=== PATIENT | female | born 1935 ===

== ENCOUNTER 2019-12-20 15:47 | Inpatient (IN) | payer MEDICARE ==
[2019-12-20] MEDS ORDERED: MELATONIN 5 MG TAB PO PRN (17:49)
[2019-12-20] MEDS: traZODone 50 MG TAB PO SCH (23:45)
--- NOTE | 2019-12-21 08:54 | Consultation ---
History of Present Illness - Reason for Consult Consult date: 12/21/19 Reason for consult: Dementia w/Behavioral Disturbance - History of Present Psychiatric Illness Torito Cohen is an 84y/o female who was admitted to [facility] for due to agitation and threatening behavior at her [facility], per nurse note. During my interview the patient was lying in bed. She is awake, and oriented x 2. She is irritable. The patient states, "I am not good. I could be in my own bed." She then says, "but instead they got me in somebody else bed." She says "I guess I'm here for safe keeping." The patient denies hallucinations of any kind, stating "the only voices I hear is somebody yapping their mouth when they are talking to me." She denies suicidal thoughts, stating, "who me? no, I don't want to hurt myself." She denies any suicide attempt in the past. She then says, "It's some people that was around me that I wanted to hurt." She then says, "if they give me a reason to." The patient denies any past psych history. She says, "my doctor told me I didn't need any of that." She also denies any illicit drug use, alcohol or nicotine. PAST PSYCHIATRIC HISTORY Diagnoses: Denies Suicide attempts or Self-harm behavior: Denies Prior psychiatric hospitalizations: Denies Substance Abuse history: Denies Previous psychiatric medications tried: Denies Outpatient treatment: Denies PAST MEDICAL HISTORY: None reported FAMILY PSYCHIATRIC HISTORY: None reported or documented SOCIAL HISTORY Marital Status: Living Arrangements: with grandchildren Employment Status: Retried Access to guns/weapons: Denies Education: History of Abuse: None reported Legal History: none reported REVIEW OF SYSTEMS Constitutional: Negative for weight loss ENT: Negative for stridor Respiratory: Negative for cough or hemoptysis All other systems reviewed and are negative MENTAL STATUS EXAMINATION General Appearance: Dressed appropriately Behavior: Irritable, cooperative Mood: "not good" Affect and affective range: Congruent with stated mood Speech: Normal volume, Regular rate and rhythm Thought Process: Goal directed Thought Content: Suicidal Ideation: Denies Homicidal Ideation: Denies Hallucinations: Denies Delusions: None elicited Insight and Judgment: Limited Memory/Cognition: Limited Assessment Dementia with Behavioral Disturbance Treatment Plan Patient will be admitted for inpatient psychiatric evaluation, medication adjustment and close monitoring The patient's behavior, mood, sleep and appetite will be closely monitored. Patient will be enrolled in individual and group therapeutic sessions and encouraged to attend. Patient will be provided with a safe and structured environment. Patient's physical health needs will be addressed by the Hospitalist. Hospitalist Consulted Labs including CBC, CMP, Lipid profile and Hemoglobin A1C ordered Social Assessment will be completed and the Technical Sales Specialist will work with patient and family to ensure a suitable and safe disposition Medication adjustment will be made as clinically indicated Started home medications Started Risperidone 0.25mg po BID Usual Wellness [facility]: - Start Trazodone 50 mg po QHS & 50 mg po QHS PRN between 10 PM & 2 AM for insomnia - Start Melatonin 5 mg po QHS to promote circadian rhythm - Start [place]-3 for brain health, reduce impulsivity, and as adjunctive treatment for mood disorder, continue upon discharge given overall benefits. The patient agreed on the treatment plan, understood the risk, benefit, alternative treatment, potential consequence of no treatment, and gave informed consent. I certify that Torito Cohen is an 84y/o female who inpatient psychiatric services are required for treatment that could reasonably be expected to improve the patient's condition of Dementia with Behavioral Disturbance. Estimated length of stay: (7 days) Post hospital care: primary care provider, psychiatric provider Medications and Allergies Allergies Allergy/AdvReac Type Severity Reaction Status Date / Time No Known Allergies Allergy Verified 12/20/19 22:51 Home Medications Medication Instructions Recorded Confirmed Last Taken Type Docusate Sodium [Colace] 100 mg PO BID 12/20/19 12/20/19 Unknown History Memantine 5 mg PO BID 12/20/19 12/20/19 Unknown History Tylenol 650 mg PO Q4HR PRN 12/20/19 12/20/19 Unknown History amLODIPine 2.5 mg PO HS 12/20/19 12/20/19 Unknown History donepeziL [Aricept] 10 mg PO QDAY 12/20/19 12/20/19 Unknown History Active Meds: Active Medications Melatonin (Melatonin) 5 mg PO QHS PRN PRN Reason: Sleep Trazodone HCl (Desyrel) 50 mg PO QHS [facility] Last Admin: 12/20/19 23:45 Dose: Not Given Documented by: Mental Status Exam - Vital signs Last Vital Signs Temp 99.7 F H 12/20/19 22:45 Pulse 76 12/20/19 22:45 Resp 20 12/20/19 22:45 BP 160/70 12/20/19 22:45 Pulse Ox 99 12/20/19 22:45 Results Result Diagrams: 12/21/19 08:10 Abnormal lab results 12/21/19 Range/Units 07:02 POC Glucose 138 H (70-105) All other labs normal.
[2019-12-21 08:56] LABS: Albumin 3.9 g/dL (3.9-5); Chol/HDL Ratio 2.88 %
[2019-12-21] MEDS ORDERED: TYLENOL 650 MG PO PRN (09:02)
[2019-12-21] MEDS: DONEPEZIL 10 MG TAB PO SCH (09:58)
[2019-12-21] MEDS: DOCUSATE SODIUM 100 MG CAP PO SCH ×2 (09:58→22:20)
[2019-12-21] MEDS: OMEGA-3 FATTY ACIDS/FISH OIL 1 GRAM CAP PO SCH ×2 (09:58→22:19)
[2019-12-21] MEDS: risperiDONE 0.25 MG TAB PO SCH ×2 (09:58→22:20)
[2019-12-21] MEDS ORDERED: ACETAMINOPHEN 325 MG TAB PO PRN (10:00)
[2019-12-21] MEDS ORDERED: NON-FORMULARY EACH (Memantine 5 MG) PO SCH (10:00)
[2019-12-21] MEDS: MEMANTINE 5 MG TAB PO SCH ×2 (10:30→22:20)
[2019-12-21 13:34] LABS: Mucus,Urine FEW /HPF
[2019-12-21 13:36] LABS: Bilirubin,Urine NEG (Negative); Blood,Urine NEG (Negative); Color,Urine Yellow (Yellow); Urobilinogen,Urine < 2.0 mg/dL (<2.0)
[2019-12-21] MEDS ORDERED: AMLODIPINE 2.5 MG PO SCH (22:00)
[2019-12-21] MEDS: traZODone 50 MG TAB PO SCH (22:19)
[2019-12-21] MEDS: amLODIPine 5 MG TAB PO SCH (22:20)
[2019-12-22] MEDS: risperiDONE 0.25 MG TAB PO SCH ×2 (09:40→21:41)
[2019-12-22] MEDS: MEMANTINE 5 MG TAB PO SCH ×2 (09:40→21:40)
[2019-12-22] MEDS: DONEPEZIL 10 MG TAB PO SCH (09:40)
[2019-12-22] MEDS: OMEGA-3 FATTY ACIDS/FISH OIL 1 GRAM CAP PO SCH ×2 (09:40→21:41)
[2019-12-22] MEDS: DOCUSATE SODIUM 100 MG CAP PO SCH ×2 (09:40→21:40)
--- NOTE | 2019-12-22 09:42 | Progress Note ---
Subjective Date of service: 12/22/19 Principal diagnosis: Dementia w/Behavioral Disturbance Subjective Comment: The patient's medical record was reviewed and the patient's progress was discussed with the nursing staff. During my interview with the patient, she is lying down in bed with her eyes closed. She easily arouses. The patient is easily irritable. She appears somewhat paranoid. She is a/o x 1, but initially tells me "I don't remember my name." The patient states "how do you think I'm doing," when asking her how was she feeling. She then states, "it's not good." The patient states, "I'm hurting all over my body. I need to be in a hospital where there are nurses and doctors." She then states "I don't see no nurses in this place." She denies hallucinations of any kind. When asking the patient thoughts of self harm, she says "no, I don't want to kill myself. I want to kill you." REVIEW OF SYSTEMS Constitutional: Negative for weight loss ENT: Negative for stridor Respiratory: Negative for cough or hemoptysis All other systems reviewed and are negative MENTAL STATUS EXAMINATION General Appearance: Dressed appropriately Behavior: Irritable, cooperative Mood: "not good" Affect and affective range: Congruent with stated mood Speech: Normal volume, Regular rate and rhythm Thought Process: Goal directed Thought Content: Suicidal Ideation: Denies Homicidal Ideation: possibly passive Hallucinations: Denies Delusions: None elicited Insight and Judgment: Limited Memory/Cognition: Limited Assessment Dementia with Behavioral Disturbance Treatment Plan Patient will be admitted for inpatient psychiatric evaluation, medication adjustment and close monitoring The patient's behavior, mood, sleep and appetite will be closely monitored. Patient will be enrolled in individual and group therapeutic sessions and encouraged to attend. Patient will be provided with a safe and structured environment. Patient's physical health needs will be addressed by the Hospitalist. Hospitalist Consulted Labs including CBC, CMP, Lipid profile and Hemoglobin A1C ordered Social Assessment will be completed and the Big Data Analytics Lead will work with patient and family to ensure a suitable and safe disposition Medication adjustment will be made as clinically indicated Increased Risperidone 0.5mg po BID Usual Wellness [facility]: - Start Trazodone 50 mg po QHS & 50 mg po QHS PRN between 10 PM & 2 AM for insomnia - Start Melatonin 5 mg po QHS to promote circadian rhythm - Start [place]-3 for brain health, reduce impulsivity, and as adjunctive treatment for mood disorder, continue upon discharge given overall benefits. The patient agreed on the treatment plan, understood the risk, benefit, alternative treatment, potential consequence of no treatment, and gave informed consent. Estimated length of stay: (7 days) Post hospital care: primary care provider, psychiatric provider Medications and Allergies Allergies Allergy/AdvReac Type Severity Reaction Status Date / Time No Known Allergies Allergy Verified 12/20/19 22:51 Home Medications Medication Instructions Recorded Confirmed Last Taken Type Docusate Sodium [Colace] 100 mg PO BID 12/20/19 12/20/19 Unknown History Memantine 5 mg PO BID 12/20/19 12/20/19 Unknown History Tylenol 650 mg PO Q4HR PRN 12/20/19 12/20/19 Unknown History amLODIPine 2.5 mg PO HS 12/20/19 12/20/19 Unknown History donepeziL [Aricept] 10 mg PO QDAY 12/20/19 12/20/19 Unknown History Active Meds: Active Medications Acetaminophen (Tylenol) 650 mg PO Q4H PRN PRN Reason: Pain, Moderate (4-6) Amlodipine Besylate (Amlodipine) 2.5 mg PO QHS [facility] Last Admin: 12/21/19 22:20 Dose: 2.5 mg Documented by: Docusate Sodium (Colace) 100 mg PO BID [facility] Last Admin: 12/21/19 22:20 Dose: 100 mg Documented by: Donepezil HCl (Aricept) 10 mg PO QDAY [facility] Last Admin: 12/21/19 09:58 Dose: 10 mg Documented by: Fish Oil (Fish Oil) 2,000 mg PO BID [facility] Last Admin: 12/21/19 22:19 Dose: 2,000 mg Documented by: Melatonin (Melatonin) 5 mg PO QHS PRN PRN Reason: Sleep Memantine (Memantine) 5 mg PO BID [facility] Last Admin: 12/21/19 22:20 Dose: 5 mg Documented by: Risperidone (Risperdal) 0.25 mg PO BID [facility] Last Admin: 12/21/19 22:20 Dose: 0.25 mg Documented by: Trazodone HCl (Desyrel) 50 mg PO QHS [facility] Last Admin: 12/21/19 22:19 Dose: 50 mg Documented by: Results - Results Labs/Vitals: Laboratory Last Values Sodium 141 mmol/L (137-145) 12/21/19 08:10 Potassium 4.5 mmol/L (3.6-5.0) 12/21/19 08:10 Chloride 105.2 mmol/L (98-107) 12/21/19 08:10 Carbon Dioxide 22 mmol/L (22-30) 12/21/19 08:10 Anion Gap 18 mmol/L 12/21/19 08:10 BUN 22 mg/dL (7-17) H 12/21/19 08:10 Creatinine 1.0 mg/dL (0.6-1.2) 12/21/19 08:10 Estimated GFR 53 ml/min 12/21/19 08:10 BUN/Creatinine Ratio 22 % 12/21/19 08:10 Glucose 122 mg/dL (65-100) H 12/21/19 08:10 POC Glucose 138 (70-105) H 12/21/19 07:02 Calcium 9.0 mg/dL (8.4-10.2) 12/21/19 08:10 Total Bilirubin 0.40 mg/dL (0.1-1.2) 12/21/19 08:10 AST 19 units/L (5-40) 12/21/19 08:10 ALT 17 units/L (7-56) 12/21/19 08:10 Alkaline Phosphatase 94 units/L (35-129) 12/21/19 08:10 Total Protein 7.1 g/dL (6.3-8.2) 12/21/19 08:10 Albumin 3.9 g/dL (3.9-5) 12/21/19 08:10 Albumin/Globulin Ratio 1.2 % 12/21/19 08:10 Triglycerides 78 mg/dL (2-149) 12/21/19 08:10 Cholesterol 199 mg/dL (50-199) 12/21/19 08:10 LDL Cholesterol Direct 119 mg/dL (50-130) 12/21/19 08:10 HDL Cholesterol 69 mg/dL (40-59) H 12/21/19 08:10 Cholesterol/HDL Ratio 2.88 % 12/21/19 08:10 Urine Color Yellow (Yellow) 12/20/19 Unknown Urine Turbidity Clear (Clear) 12/20/19 Unknown Urine pH 6.0 (5.0-7.0) 12/20/19 Unknown Ur Specific [place] 1.020 (1.003-1.030) 12/20/19 Unknown Urine Protein 30 mg/dl mg/dL (Negative) 12/20/19 Unknown Urine Glucose (UA) Neg mg/dL (Negative) 12/20/19 Unknown Urine Ketones Neg mg/dL (Negative) 12/20/19 Unknown Urine Blood Neg (Negative) 12/20/19 Unknown Urine Nitrite Neg (Negative) 12/20/19 Unknown Ur Reducing Substances Not Reportable 12/20/19 Unknown Urine Bilirubin Neg (Negative) 12/20/19 Unknown Urine Ictotest Not Reportable 12/20/19 Unknown Urine Urobilinogen < 2.0 mg/dL (<2.0) 12/20/19 Unknown Ur Leukocyte Esterase Sm (Negative) 12/20/19 Unknown Urine WBC (Auto) 5.0 /HPF (0.0-6.0) 12/20/19 Unknown Urine RBC (Auto) 1.0 /HPF (0.0-6.0) 12/20/19 Unknown U Epithel Cells (Auto) 5.0 /HPF (0-13.0) 12/20/19 Unknown Urine Mucus Few /HPF 12/20/19 Unknown Last Vital Signs Temp 98.1 F 12/22/19 09:20 Pulse 67 12/22/19 09:20 Resp 18 12/22/19 09:20 BP 141/63 12/22/19 09:20 Pulse Ox 99 12/22/19 09:20
[2019-12-22 10:00] LABS: Hematocrit 45.6 % (30.3-42.9); Hemoglobin 14.9 gm/dl (10.1-14.3); Mean Corpuscular HGB Conc 33 % (30-34); Mean Corpuscular Volume 90 fl (79-97); Platelet Count 139 K/mm3 (140-440); Red Blood Count 5.09 M/mm3 (3.65-5.03); Red Cell Distribution Width 13.7 % (13.2-15.2)
[2019-12-22] MEDS ORDERED: risperiDONE 0.25 MG TAB PO SCH (10:00)
[2019-12-22] MEDS: amLODIPine 5 MG TAB PO SCH (21:39)
[2019-12-22] MEDS: traZODone 50 MG TAB PO SCH (21:40)
--- NOTE | 2019-12-23 08:37 | Progress Note ---
Subjective Date of service: 12/23/19 Principal diagnosis: Dementia w/Behavioral Disturbance Subjective Comment: The patient's medical record was reviewed and the patient's progress was discussed with the nursing staff. The nurse note states the patient calm and pleasantly confused and forgetful. She tried to eat food left by another pt. Pt. was a little bit irritable, but calm down right after as staff was redirect her and she apologized. During my interview with the patient, she is in her room straightening her bed. She is confused. She is calm and cooperative. She walk over to the window. The patient states, "I'm trying to see if I see my house from here." She says "I need to go across the street to my house to get something." She says her night was "okay." The patient says she "feels alright." She denies SI/HI or hallucinations of any kind. REASON FOR CONTINUED INPATIENT TREATMENT: The patient is improving, but continues to be easily irritable. Will continue to treat and stabilize to ensue a safe discharge. REVIEW OF SYSTEMS Constitutional: Negative for weight loss ENT: Negative for stridor Respiratory: Negative for cough or hemoptysis All other systems reviewed and are negative MENTAL STATUS EXAMINATION General Appearance: Dressed appropriately Behavior: Calm, cooperative (at times easily irritable) Mood: "alright" Affect and affective range: Congruent with stated mood Speech: Normal volume, Regular rate and rhythm Thought Process: Impaired Thought Content: Suicidal Ideation: Denies Homicidal Ideation: Denies Hallucinations: Denies Delusions: None elicited Insight and Judgment: Limited Memory/Cognition: Impaired Assessment Dementia with Behavioral Disturbance Treatment Plan Patient will be admitted for inpatient psychiatric evaluation, medication adjustment and close monitoring The patient's behavior, mood, sleep and appetite will be closely monitored. Patient will be enrolled in individual and group therapeutic sessions and encouraged to attend. Patient will be provided with a safe and structured environment. Patient's physical health needs will be addressed by the Hospitalist. Hospitalist Consulted Labs including CBC, CMP, Lipid profile and Hemoglobin A1C ordered Social Assessment will be completed and the Submarine Advisory Team Watch Officer will work with patient and family to ensure a suitable and safe disposition Medication adjustment will be made as clinically indicated Increased Risperidone 0.5mg po BID yesterday No changes made today Usual Wellness [facility]: - Start Trazodone 50 mg po QHS & 50 mg po QHS PRN between 10 PM & 2 AM for insomnia - Start Melatonin 5 mg po QHS to promote circadian rhythm - Start [place]-3 for brain health, reduce impulsivity, and as adjunctive treatment for mood disorder, continue upon discharge given overall benefits. The patient agreed on the treatment plan, understood the risk, benefit, alternative treatment, potential consequence of no treatment, and gave informed consent. Estimated length of stay: (5 days) Post hospital care: primary care provider, psychiatric provider Medications and Allergies Allergies Allergy/AdvReac Type Severity Reaction Status Date / Time No Known Allergies Allergy Verified 12/20/19 22:51 Home Medications Medication Instructions Recorded Confirmed Last Taken Type Docusate Sodium [Colace] 100 mg PO BID 12/20/19 12/20/19 Unknown History Memantine 5 mg PO BID 12/20/19 12/20/19 Unknown History Tylenol 650 mg PO Q4HR PRN 12/20/19 12/20/19 Unknown History amLODIPine 2.5 mg PO HS 12/20/19 12/20/19 Unknown History donepeziL [Aricept] 10 mg PO QDAY 12/20/19 12/20/19 Unknown History Active Meds: Active Medications Acetaminophen (Tylenol) 650 mg PO Q4H PRN PRN Reason: Pain, Moderate (4-6) Amlodipine Besylate (Amlodipine) 2.5 mg PO QHS [facility] Last Admin: 12/22/19 21:39 Dose: 2.5 mg Documented by: Docusate Sodium (Colace) 100 mg PO BID [facility] Last Admin: 12/22/19 21:40 Dose: 100 mg Documented by: Donepezil HCl (Aricept) 10 mg PO QDAY [facility] Last Admin: 12/22/19 09:40 Dose: 10 mg Documented by: Fish Oil (Fish Oil) 2,000 mg PO BID [facility] Last Admin: 12/22/19 21:41 Dose: 2,000 mg Documented by: Melatonin (Melatonin) 5 mg PO QHS PRN PRN Reason: Sleep Memantine (Memantine) 5 mg PO BID [facility] Last Admin: 12/22/19 21:40 Dose: 5 mg Documented by: Risperidone (Risperdal) 0.5 mg PO BID [facility] Last Admin: 12/22/19 21:41 Dose: 0.5 mg Documented by: Trazodone HCl (Desyrel) 50 mg PO QHS [facility] Last Admin: 12/22/19 21:40 Dose: 50 mg Documented by: Results - Results Labs/Vitals: Laboratory Last Values WBC 5.9 K/mm3 (4.5-11.0) 12/22/19 09:03 RBC 5.09 M/mm3 (3.65-5.03) H 12/22/19 09:03 Hgb 14.9 gm/dl (10.1-14.3) H 12/22/19 09:03 Hct 45.6 % (30.3-42.9) H 12/22/19 09:03 MCV 90 fl (79-97) 12/22/19 09:03 MCH 29 pg (28-32) 12/22/19 09:03 MCHC 33 % (30-34) 12/22/19 09:03 RDW 13.7 % (13.2-15.2) 12/22/19 09:03 Plt Count 139 K/mm3 (140-440) L 12/22/19 09:03 Lymph % (Auto) Recreational Counselor 12/22/19 09:03 [place] % (Auto) Recreational Counselor 12/22/19 09:03 Eos % (Auto) Recreational Counselor 12/22/19 09:03 Baso % (Auto) Recreational Counselor 12/22/19 09:03 Lymph # Recreational Counselor 12/22/19 09:03 [place] # Recreational Counselor 12/22/19 09:03 Eos # Recreational Counselor 12/22/19 09:03 Baso # Recreational Counselor 12/22/19 09:03 Seg Neutrophils % Recreational Counselor 12/22/19 09:03 Seg Neutrophils # Recreational Counselor 12/22/19 09:03 Sodium 141 mmol/L (137-145) 12/21/19 08:10 Potassium 4.5 mmol/L (3.6-5.0) 12/21/19 08:10 Chloride 105.2 mmol/L (98-107) 12/21/19 08:10 Carbon Dioxide 22 mmol/L (22-30) 12/21/19 08:10 Anion Gap 18 mmol/L 12/21/19 08:10 BUN 22 mg/dL (7-17) H 12/21/19 08:10 Creatinine 1.0 mg/dL (0.6-1.2) 12/21/19 08:10 Estimated GFR 53 ml/min 12/21/19 08:10 BUN/Creatinine Ratio 22 % 12/21/19 08:10 Glucose 122 mg/dL (65-100) H 12/21/19 08:10 POC Glucose 181 (70-105) H 12/23/19 06:27 Calcium 9.0 mg/dL (8.4-10.2) 12/21/19 08:10 Total Bilirubin 0.40 mg/dL (0.1-1.2) 12/21/19 08:10 AST 19 units/L (5-40) 12/21/19 08:10 ALT 17 units/L (7-56) 12/21/19 08:10 Alkaline Phosphatase 94 units/L (35-129) 12/21/19 08:10 Total Protein 7.1 g/dL (6.3-8.2) 12/21/19 08:10 Albumin 3.9 g/dL (3.9-5) 12/21/19 08:10 Albumin/Globulin Ratio 1.2 % 12/21/19 08:10 Triglycerides 78 mg/dL (2-149) 12/21/19 08:10 Cholesterol 199 mg/dL (50-199) 12/21/19 08:10 LDL Cholesterol Direct 119 mg/dL (50-130) 12/21/19 08:10 HDL Cholesterol 69 mg/dL (40-59) H 12/21/19 08:10 Cholesterol/HDL Ratio 2.88 % 12/21/19 08:10 Urine Color Yellow (Yellow) 12/20/19 Unknown Urine Turbidity Clear (Clear) 12/20/19 Unknown Urine pH 6.0 (5.0-7.0) 12/20/19 Unknown Ur Specific [place] 1.020 (1.003-1.030) 12/20/19 Unknown Urine Protein 30 mg/dl mg/dL (Negative) 12/20/19 Unknown Urine Glucose (UA) Neg mg/dL (Negative) 12/20/19 Unknown Urine Ketones Neg mg/dL (Negative) 12/20/19 Unknown Urine Blood Neg (Negative) 12/20/19 Unknown Urine Nitrite Neg (Negative) 12/20/19 Unknown Ur Reducing Substances Not Reportable 12/20/19 Unknown Urine Bilirubin Neg (Negative) 12/20/19 Unknown Urine Ictotest Not Reportable 12/20/19 Unknown Urine Urobilinogen < 2.0 mg/dL (<2.0) 12/20/19 Unknown Ur Leukocyte Esterase Sm (Negative) 12/20/19 Unknown Urine WBC (Auto) 5.0 /HPF (0.0-6.0) 12/20/19 Unknown Urine RBC (Auto) 1.0 /HPF (0.0-6.0) 12/20/19 Unknown U Epithel Cells (Auto) 5.0 /HPF (0-13.0) 12/20/19 Unknown Urine Mucus Few /HPF 12/20/19 Unknown Last Vital Signs Temp 98.6 F 12/22/19 22:00 Pulse 83 12/22/19 22:00 Resp 18 12/22/19 22:00 BP 143/80 12/22/19 22:00 Pulse Ox 100 12/22/19 22:00
--- NOTE | 2019-12-23 11:32 | Progress Note ---
Assessment and Plan - Patient Problems (1) Cerebral atherosclerosis Current Visit: Yes Status: Acute Plan to address problem: Supportive care, continue medical management. (2) Hypertension Current Visit: Yes Status: Acute Qualifiers: Hypertension type: essential hypertension Qualified Code(s): I10 - Essential (primary) hypertension Plan to address problem: Monitor blood pressure every shift, continue medical management. (3) Vascular dementia Current Visit: Yes Status: Acute Qualifiers: Dementia behavioral disturbance: with behavioral disturbance Qualified Code(s): F01.51 - Vascular dementia with behavioral disturbance Plan to address problem: Supportive care, increased verbal prompting, increased redirection with activities of daily living. Benzodiazepine therapy as needed as clinically indicated. History Interval history: 84 YO Female [facility] resident with HTN, HCV, Vascular Dementia, Cerebral Atherosclerosis. Patient seen and evaluated in the recreation room. Patient denies complaints. Patient denies pain. Patient is minimally cooperative with exam and interview. No reported nursing events. Pt comfortable Hospitalist Physical - Constitutional Vitals: Temp Pulse Resp BP Pulse Ox 98.6 F 80 18 130/70 100 12/23/19 10:06 12/23/19 10:28 12/23/19 10:06 12/23/19 10:06 12/22/19 22:00 General appearance: Present: no acute distress - EENT Eyes: Present: PERRL - Neck Neck: Present: supple - Respiratory Respiratory effort: normal Respiratory: bilateral: CTA - Cardiovascular Rhythm: regular Heart Sounds: Present: S1 & S2 - Extremities Extremities: no ischemia Peripheral Pulses: within normal limits - Abdominal General gastrointestinal: soft, non-tender, non-distended - Integumentary Integumentary: Present: clear, dry - Psychiatric Psychiatric: cooperative Results - Labs CBC & Chem 7: 12/22/19 09:03 12/21/19 08:10 Labs: Laboratory Last Values WBC 5.9 K/mm3 (4.5-11.0) 12/22/19 09:03 RBC 5.09 M/mm3 (3.65-5.03) H 12/22/19 09:03 Hgb 14.9 gm/dl (10.1-14.3) H 12/22/19 09:03 Hct 45.6 % (30.3-42.9) H 12/22/19 09:03 MCV 90 fl (79-97) 12/22/19 09:03 MCH 29 pg (28-32) 12/22/19 09:03 MCHC 33 % (30-34) 12/22/19 09:03 RDW 13.7 % (13.2-15.2) 12/22/19 09:03 Plt Count 139 K/mm3 (140-440) L 12/22/19 09:03 Lymph % (Auto) Enterostomal Nurse 12/22/19 09:03 [place] % (Auto) Enterostomal Nurse 12/22/19 09:03 Eos % (Auto) Enterostomal Nurse 12/22/19 09:03 Baso % (Auto) Enterostomal Nurse 12/22/19 09:03 Lymph # Enterostomal Nurse 12/22/19 09:03 [place] # Enterostomal Nurse 12/22/19 09:03 Eos # Enterostomal Nurse 12/22/19 09:03 Baso # Enterostomal Nurse 12/22/19 09:03 Seg Neutrophils % Enterostomal Nurse 12/22/19 09:03 Seg Neutrophils # Enterostomal Nurse 12/22/19 09:03 Sodium 141 mmol/L (137-145) 12/21/19 08:10 Potassium 4.5 mmol/L (3.6-5.0) 12/21/19 08:10 Chloride 105.2 mmol/L (98-107) 12/21/19 08:10 Carbon Dioxide 22 mmol/L (22-30) 12/21/19 08:10 Anion Gap 18 mmol/L 12/21/19 08:10 BUN 22 mg/dL (7-17) H 12/21/19 08:10 Creatinine 1.0 mg/dL (0.6-1.2) 12/21/19 08:10 Estimated GFR 53 ml/min 12/21/19 08:10 BUN/Creatinine Ratio 22 % 12/21/19 08:10 Glucose 122 mg/dL (65-100) H 12/21/19 08:10 POC Glucose 181 (70-105) H 12/23/19 06:27 Calcium 9.0 mg/dL (8.4-10.2) 12/21/19 08:10 Total Bilirubin 0.40 mg/dL (0.1-1.2) 12/21/19 08:10 AST 19 units/L (5-40) 12/21/19 08:10 ALT 17 units/L (7-56) 12/21/19 08:10 Alkaline Phosphatase 94 units/L (35-129) 12/21/19 08:10 Total Protein 7.1 g/dL (6.3-8.2) 12/21/19 08:10 Albumin 3.9 g/dL (3.9-5) 12/21/19 08:10 Albumin/Globulin Ratio 1.2 % 12/21/19 08:10 Triglycerides 78 mg/dL (2-149) 12/21/19 08:10 Cholesterol 199 mg/dL (50-199) 12/21/19 08:10 LDL Cholesterol Direct 119 mg/dL (50-130) 12/21/19 08:10 HDL Cholesterol 69 mg/dL (40-59) H 12/21/19 08:10 Cholesterol/HDL Ratio 2.88 % 12/21/19 08:10 Urine Color Yellow (Yellow) 12/20/19 Unknown Urine Turbidity Clear (Clear) 12/20/19 Unknown Urine pH 6.0 (5.0-7.0) 12/20/19 Unknown Ur Specific [place] 1.020 (1.003-1.030) 12/20/19 Unknown Urine Protein 30 mg/dl mg/dL (Negative) 12/20/19 Unknown Urine Glucose (UA) Neg mg/dL (Negative) 12/20/19 Unknown Urine Ketones Neg mg/dL (Negative) 12/20/19 Unknown Urine Blood Neg (Negative) 12/20/19 Unknown Urine Nitrite Neg (Negative) 12/20/19 Unknown Ur Reducing Substances Not Reportable 12/20/19 Unknown Urine Bilirubin Neg (Negative) 12/20/19 Unknown Urine Ictotest Not Reportable 12/20/19 Unknown Urine Urobilinogen < 2.0 mg/dL (<2.0) 12/20/19 Unknown Ur Leukocyte Esterase Sm (Negative) 12/20/19 Unknown Urine WBC (Auto) 5.0 /HPF (0.0-6.0) 12/20/19 Unknown Urine RBC (Auto) 1.0 /HPF (0.0-6.0) 12/20/19 Unknown U Epithel Cells (Auto) 5.0 /HPF (0-13.0) 12/20/19 Unknown Urine Mucus Few /HPF 12/20/19 Unknown [place]den/IV: Voiding Method Toilet Active Medications - Current Medications Current Medications: Generic Name Dose Route Start Last Admin Trade Name Freq PRN Reason Stop Dose Admin Acetaminophen 650 mg 12/21/19 10:00 Tylenol PO Q4H PRN Pain, Moderate (4-6) Amlodipine Besylate 2.5 mg 12/21/19 22:00 12/22/19 21:39 Amlodipine PO 2.5 mg QHS SHANNAN Administration Docusate Sodium 100 mg 12/21/19 10:00 12/22/19 21:40 Colace PO 100 mg BID SHANNAN Administration Donepezil HCl 10 mg 12/21/19 10:00 12/22/19 09:40 Aricept PO 10 mg QDAY SHANNAN Administration Fish Oil 2,000 mg 12/21/19 10:00 12/22/19 21:41 Fish Oil PO 2,000 mg BID SHANNAN Administration Melatonin 5 mg 12/20/19 17:49 Melatonin PO QHS PRN Sleep Memantine 5 mg 12/21/19 10:00 12/22/19 21:40 Memantine PO 5 mg BID SHANNAN Administration Risperidone 0.5 mg 12/22/19 22:00 12/22/19 21:41 Risperdal PO 0.5 mg BID SHANNAN Administration Trazodone HCl 50 mg 12/20/19 22:00 12/22/19 21:40 Desyrel PO 50 mg QHS SHANNAN Administration
[2019-12-23] MEDS: MEMANTINE 5 MG TAB PO SCH ×2 (11:48→21:17)
[2019-12-23] MEDS: DOCUSATE SODIUM 100 MG CAP PO SCH ×2 (11:49→21:16)
[2019-12-23] MEDS: risperiDONE 0.25 MG TAB PO SCH ×2 (11:49→21:16)
[2019-12-23] MEDS: DONEPEZIL 10 MG TAB PO SCH (11:49)
[2019-12-23] MEDS: OMEGA-3 FATTY ACIDS/FISH OIL 1 GRAM CAP PO SCH ×2 (11:49→21:15)
[2019-12-23] MEDS: traZODone 50 MG TAB PO SCH (21:15)
[2019-12-23] MEDS: amLODIPine 5 MG TAB PO SCH (21:16)
--- NOTE | 2019-12-24 07:24 | Progress Note ---
Subjective Date of service: 12/24/19 Principal diagnosis: Dementia w/Behavioral Disturbance Subjective Comment: Psych nurse: Patient was calm and cooperative most of the day. She became agitated this afternoon when asked where she was going, after walking out of the Dayroom. Patient replied, " I don't have to tell anybody where I'm going. I'm a grown woman". Patient later became angry when she was told she could not stay in bathroom any longer to wash her face. She was in bathroom washing her face for almost an hour., as reported by Activity Therapist. Patient stated, "I'm tired of people pulling me here and there. They don't call anybody else, just me." Patient continues to follow direction but responds slowly. She ate all of her meals well and was compliant with medication. She denies S/H/I and hallucinations. Will continue to monitor for safety. Psych Progress Miss Cohen seen today, reports sleeping well and doing very good. Says she really doesnt know why she is here but has been taking the medications given to her. Reason for continued inpatient psychiatric hospitalization: Nurse reports behv disturbance in patient yesterday, pt became angry, was hyperverbal and had to be redirected and calmed down. REVIEW OF SYSTEMS Constitutional: Negative for weight loss ENT: Negative for stridor Respiratory: Negative for cough or hemoptysis All other systems reviewed and are negative MENTAL STATUS EXAMINATION General Appearance and Behavior: Age appropriate, good hygiene, wearing appropriate clothes, good eye contact, cooperative polite with questioning. Cooperation: Participating/engaged Psychomotor Behavior: unremarkable and within normal limits Mood:"feel good" Affect and affective range: congruent with mood Thought Process: Fluent/Logical Thought Content: WIthin reality Speech: Normal volume, Regular rate and rhythm Intellectual Functioning: Average Suicidal Ideation: Denies SI Homicidal Ideation: Denies HI Impulse Control: unimpaired Insight and Judgment: Limited insight and judgment Memory: Impaired Attention: normal Orientation: Alert, oriented, anxious Diagnoses: Assessment and Plan - Psychiatric problem (1) Dementia with Behv disturbance Current Visit: Yes Status: Acute Treatment Plan Will hold off increasing risperidone, due to recent medication changes 2 days ago, and see if irritable mood persist. Patient will be admitted for inpatient psychiatric evaluation, medication adjustment and close monitoring The patient's behavior, mood, sleep and appetite will be closely monitored. Patient will be enrolled in individual and group therapeutic sessions and encouraged to attend. Patient will be provided with a safe and structured environment. Patient's physical health needs will be addressed by the Hospitalist. Hospitalist Consulted Labs including CBC, CMP, Lipid profile and Hemoglobin A1C ordered Social Assessment will be completed and the Lobby Concierge will work with patient and family to ensure a suitable and safe disposition Medication adjustment will be made as clinically indicated Usual Wellness Restorationism/Preservation: - Start Trazodone 50 mg po QHS & 50 mg po QHS PRN between 10 PM & 2 AM for insomnia - Start Melatonin 5 mg po QHS to promote circadian rhythm - Start [place]-3 for brain health, reduce impulsivity, and as adjunctive treatment for mood disorder, continue upon discharge given overall benefits. - Start B1 prophylaxis with 200 mg po for 5 days The patient agreed on the treatment plan, understood the risk, benefit, alternative treatment, potential consequence of no treatment, and gave informed consent. Initial Certification This is an acknowledgement statement that LUISA HASKINS is a 57 year old F who requires inpatient psychiatric admission for treatment which could reasonably be expected to improve the patient's condition for Estimated period of time patient will need to remain in the hospital: [4] Medications and Allergies Allergies Allergy/AdvReac Type Severity Reaction Status Date / Time No Known Allergies Allergy Verified 12/20/19 22:51 Home Medications Medication Instructions Recorded Confirmed Last Taken Type Docusate Sodium [Colace] 100 mg PO BID 12/20/19 12/20/19 Unknown History Memantine 5 mg PO BID 12/20/19 12/20/19 Unknown History Tylenol 650 mg PO Q4HR PRN 12/20/19 12/20/19 Unknown History amLODIPine 2.5 mg PO HS 12/20/19 12/20/19 Unknown History donepeziL [Aricept] 10 mg PO QDAY 12/20/19 12/20/19 Unknown History Active Meds: Active Medications Acetaminophen (Tylenol) 650 mg PO Q4H PRN PRN Reason: Pain, Moderate (4-6) Amlodipine Besylate (Amlodipine) 2.5 mg PO QHS [facility] Last Admin: 12/23/19 21:16 Dose: 2.5 mg Documented by: Docusate Sodium (Colace) 100 mg PO BID [facility] Last Admin: 12/23/19 21:16 Dose: 100 mg Documented by: Donepezil HCl (Aricept) 10 mg PO QDAY [facility] Last Admin: 12/23/19 11:49 Dose: 10 mg Documented by: Fish Oil (Fish Oil) 2,000 mg PO BID [facility] Last Admin: 12/23/19 21:15 Dose: 2,000 mg Documented by: Melatonin (Melatonin) 5 mg PO QHS PRN PRN Reason: Sleep Memantine (Memantine) 5 mg PO BID [facility] Last Admin: 12/23/19 21:17 Dose: 5 mg Documented by: Risperidone (Risperdal) 0.5 mg PO BID [facility] Last Admin: 12/23/19 21:16 Dose: 0.5 mg Documented by: Trazodone HCl (Desyrel) 50 mg PO QHS [facility] Last Admin: 12/23/19 21:15 Dose: 50 mg Documented by: Results - Results Labs/Vitals: Laboratory Last Values WBC 5.9 K/mm3 (4.5-11.0) 12/22/19 09:03 RBC 5.09 M/mm3 (3.65-5.03) H 12/22/19 09:03 Hgb 14.9 gm/dl (10.1-14.3) H 12/22/19 09:03 Hct 45.6 % (30.3-42.9) H 12/22/19 09:03 MCV 90 fl (79-97) 12/22/19 09:03 MCH 29 pg (28-32) 12/22/19 09:03 MCHC 33 % (30-34) 12/22/19 09:03 RDW 13.7 % (13.2-15.2) 12/22/19 09:03 Plt Count 139 K/mm3 (140-440) L 12/22/19 09:03 Lymph % (Auto) Assurance Officer 12/22/19 09:03 [place] % (Auto) Assurance Officer 12/22/19 09:03 Eos % (Auto) Assurance Officer 12/22/19 09:03 Baso % (Auto) Assurance Officer 12/22/19 09:03 Lymph # Assurance Officer 12/22/19 09:03 [place] # Assurance Officer 12/22/19 09:03 Eos # Assurance Officer 12/22/19 09:03 Baso # Assurance Officer 12/22/19 09:03 Seg Neutrophils % Assurance Officer 12/22/19 09:03 Seg Neutrophils # Assurance Officer 12/22/19 09:03 Sodium 141 mmol/L (137-145) 12/21/19 08:10 Potassium 4.5 mmol/L (3.6-5.0) 12/21/19 08:10 Chloride 105.2 mmol/L (98-107) 12/21/19 08:10 Carbon Dioxide 22 mmol/L (22-30) 12/21/19 08:10 Anion Gap 18 mmol/L 12/21/19 08:10 BUN 22 mg/dL (7-17) H 12/21/19 08:10 Creatinine 1.0 mg/dL (0.6-1.2) 12/21/19 08:10 Estimated GFR 53 ml/min 12/21/19 08:10 BUN/Creatinine Ratio 22 % 12/21/19 08:10 Glucose 122 mg/dL (65-100) H 12/21/19 08:10 POC Glucose 164 (70-105) H 12/24/19 07:21 Calcium 9.0 mg/dL (8.4-10.2) 12/21/19 08:10 Total Bilirubin 0.40 mg/dL (0.1-1.2) 12/21/19 08:10 AST 19 units/L (5-40) 12/21/19 08:10 ALT 17 units/L (7-56) 12/21/19 08:10 Alkaline Phosphatase 94 units/L (35-129) 12/21/19 08:10 Total Protein 7.1 g/dL (6.3-8.2) 12/21/19 08:10 Albumin 3.9 g/dL (3.9-5) 12/21/19 08:10 Albumin/Globulin Ratio 1.2 % 12/21/19 08:10 Triglycerides 78 mg/dL (2-149) 12/21/19 08:10 Cholesterol 199 mg/dL (50-199) 12/21/19 08:10 LDL Cholesterol Direct 119 mg/dL (50-130) 12/21/19 08:10 HDL Cholesterol 69 mg/dL (40-59) H 12/21/19 08:10 Cholesterol/HDL Ratio 2.88 % 12/21/19 08:10 Urine Color Yellow (Yellow) 12/20/19 Unknown Urine Turbidity Clear (Clear) 12/20/19 Unknown Urine pH 6.0 (5.0-7.0) 12/20/19 Unknown Ur Specific [place] 1.020 (1.003-1.030) 12/20/19 Unknown Urine Protein 30 mg/dl mg/dL (Negative) 12/20/19 Unknown Urine Glucose (UA) Neg mg/dL (Negative) 12/20/19 Unknown Urine Ketones Neg mg/dL (Negative) 12/20/19 Unknown Urine Blood Neg (Negative) 12/20/19 Unknown Urine Nitrite Neg (Negative) 12/20/19 Unknown Ur Reducing Substances Not Reportable 12/20/19 Unknown Urine Bilirubin Neg (Negative) 12/20/19 Unknown Urine Ictotest Not Reportable 12/20/19 Unknown Urine Urobilinogen < 2.0 mg/dL (<2.0) 12/20/19 Unknown Ur Leukocyte Esterase Sm (Negative) 12/20/19 Unknown Urine WBC (Auto) 5.0 /HPF (0.0-6.0) 12/20/19 Unknown Urine RBC (Auto) 1.0 /HPF (0.0-6.0) 12/20/19 Unknown U Epithel Cells (Auto) 5.0 /HPF (0-13.0) 12/20/19 Unknown Urine Mucus Few /HPF 12/20/19 Unknown Last Vital Signs Temp 98.6 F 12/23/19 10:06 Pulse 82 12/23/19 21:16 Resp 18 12/23/19 10:06 BP 141/63 12/23/19 21:16 Pulse Ox 98 12/23/19 19:33
[2019-12-24] MEDS: DOCUSATE SODIUM 100 MG CAP PO SCH ×2 (09:35→21:26)
[2019-12-24] MEDS: OMEGA-3 FATTY ACIDS/FISH OIL 1 GRAM CAP PO SCH ×2 (09:35→21:27)
[2019-12-24] MEDS: MEMANTINE 5 MG TAB PO SCH ×2 (09:35→21:27)
[2019-12-24] MEDS: DONEPEZIL 10 MG TAB PO SCH (09:36)
[2019-12-24] MEDS: risperiDONE 1 MG TAB PO SCH ×2 (09:38→21:27)
[2019-12-24] MEDS: amLODIPine 5 MG TAB PO SCH (21:23)
[2019-12-24] MEDS: traZODone 50 MG TAB PO SCH (21:26)
--- NOTE | 2019-12-25 07:06 | Progress Note ---
Subjective Date of service: 12/25/19 Principal diagnosis: Dementia w/Behavioral Disturbance Subjective Comment: Psych nurse: pt spent her evening activity room watching television, alert and oriented to person, calm and cooperative, forgetful, fixed on going home, paranoid, able to make needs known, good appetite, medication compliant, ambulatory, no complaints voiced, no distress noted, will continue to monitor for safety. Psych Progress Patient seen this AM, says she does not want to eat because if she eats then she will be alive, shes not happy about things and family been taken from her and says her ddauclaudetteter is the devil. Reason for continued inpatient psychiatric hospitalization: Patient now endorses SI. REVIEW OF SYSTEMS Constitutional: Negative for weight loss ENT: Negative for stridor Respiratory: Negative for cough or hemoptysis All other systems reviewed and are negative MENTAL STATUS EXAMINATION General Appearance and Behavior: Age appropriate, good hygiene, wearing appropriate clothes, good eye contact, cooperative polite with questioning. Cooperation: Participating/engaged Psychomotor Behavior: unremarkable and within normal limits Mood: sad Affect and affective range: congruent with mood Thought Process: Fluent/Logical Thought Content: WIthin reality Speech: Normal volume, Regular rate and rhythm Intellectual Functioning: Average Suicidal Ideation: SI Homicidal Ideation: Denies HI Impulse Control: unimpaired Insight and Judgment: Limited insight and judgment Memory: Impaired Attention: normal Orientation: Alert, oriented, anxious Diagnoses: Assessment and Plan - Psychiatric problem (1) Dementia with Behv disturbance Current Visit: Yes Status: Acute Treatment Plan Zoloft started, continue risperidone Patient will be admitted for inpatient psychiatric evaluation, medication adjustment and close monitoring The patient's behavior, mood, sleep and appetite will be closely monitored. Patient will be enrolled in individual and group therapeutic sessions and encouraged to attend. Patient will be provided with a safe and structured environment. Patient's physical health needs will be addressed by the Hospitalist. Hospitalist Consulted Labs including CBC, CMP, Lipid profile and Hemoglobin A1C ordered Social Assessment will be completed and the Reliner will work with patient and family to ensure a suitable and safe disposition Medication adjustment will be made as clinically indicated Usual Wellness Jewish/Preservation: - Start Trazodone 50 mg po QHS & 50 mg po QHS PRN between 10 PM & 2 AM for insomnia - Start Melatonin 5 mg po QHS to promote circadian rhythm - Start [place]-3 for brain health, reduce impulsivity, and as adjunctive treatment for mood disorder, continue upon discharge given overall benefits. - Start B1 prophylaxis with 200 mg po for 5 days The patient agreed on the treatment plan, understood the risk, benefit, alternative treatment, potential consequence of no treatment, and gave informed consent. Initial Certification This is an acknowledgement statement that LUISA HASKINS is a 57 year old F who requires inpatient psychiatric admission for treatment which could reasonably be expected to improve the patient's condition for Estimated period of time patient will need to remain in the hospital: [4] Medications and Allergies Allergies Allergy/AdvReac Type Severity Reaction Status Date / Time No Known Allergies Allergy Verified 12/20/19 22:51 Home Medications Medication Instructions Recorded Confirmed Last Taken Type Docusate Sodium [Colace] 100 mg PO BID 12/20/19 12/20/19 Unknown History Memantine 5 mg PO BID 12/20/19 12/20/19 Unknown History Tylenol 650 mg PO Q4HR PRN 12/20/19 12/20/19 Unknown History amLODIPine 2.5 mg PO HS 12/20/19 12/20/19 Unknown History donepeziL [Aricept] 10 mg PO QDAY 12/20/19 12/20/19 Unknown History Active Meds: Active Medications Acetaminophen (Tylenol) 650 mg PO Q4H PRN PRN Reason: Pain, Moderate (4-6) Amlodipine Besylate (Amlodipine) 2.5 mg PO QHS [facility] Last Admin: 12/24/19 21:23 Dose: 2.5 mg Documented by: Docusate Sodium (Colace) 100 mg PO BID [facility] Last Admin: 12/24/19 21:26 Dose: 100 mg Documented by: Donepezil HCl (Aricept) 10 mg PO QDAY [facility] Last Admin: 12/24/19 09:36 Dose: 10 mg Documented by: Fish Oil (Fish Oil) 2,000 mg PO BID [facility] Last Admin: 12/24/19 21:27 Dose: 2,000 mg Documented by: Melatonin (Melatonin) 5 mg PO QHS PRN PRN Reason: Sleep Memantine (Memantine) 5 mg PO BID [facility] Last Admin: 12/24/19 21:27 Dose: 5 mg Documented by: Risperidone (Risperdal) 1 mg PO BID [facility] Last Admin: 12/24/19 21:27 Dose: 1 mg Documented by: Trazodone HCl (Desyrel) 50 mg PO QHS SHANNAN Last Admin: 12/24/19 21:26 Dose: 50 mg Documented by: Results - Results Labs/Vitals: Laboratory Last Values WBC 5.9 K/mm3 (4.5-11.0) 12/22/19 09:03 RBC 5.09 M/mm3 (3.65-5.03) H 12/22/19 09:03 Hgb 14.9 gm/dl (10.1-14.3) H 12/22/19 09:03 Hct 45.6 % (30.3-42.9) H 12/22/19 09:03 MCV 90 fl (79-97) 12/22/19 09:03 MCH 29 pg (28-32) 12/22/19 09:03 MCHC 33 % (30-34) 12/22/19 09:03 RDW 13.7 % (13.2-15.2) 12/22/19 09:03 Plt Count 139 K/mm3 (140-440) L 12/22/19 09:03 Lymph % (Auto) Shell Machine Operator 12/22/19 09:03 [place] % (Auto) Shell Machine Operator 12/22/19 09:03 Eos % (Auto) Shell Machine Operator 12/22/19 09:03 Baso % (Auto) Shell Machine Operator 12/22/19 09:03 Lymph # Shell Machine Operator 12/22/19 09:03 [place] # Shell Machine Operator 12/22/19 09:03 Eos # Shell Machine Operator 12/22/19 09:03 Baso # Shell Machine Operator 12/22/19 09:03 Seg Neutrophils % Shell Machine Operator 12/22/19 09:03 Seg Neutrophils # Shell Machine Operator 12/22/19 09:03 Sodium 141 mmol/L (137-145) 12/21/19 08:10 Potassium 4.5 mmol/L (3.6-5.0) 12/21/19 08:10 Chloride 105.2 mmol/L (98-107) 12/21/19 08:10 Carbon Dioxide 22 mmol/L (22-30) 12/21/19 08:10 Anion Gap 18 mmol/L 12/21/19 08:10 BUN 22 mg/dL (7-17) H 12/21/19 08:10 Creatinine 1.0 mg/dL (0.6-1.2) 12/21/19 08:10 Estimated GFR 53 ml/min 12/21/19 08:10 BUN/Creatinine Ratio 22 % 12/21/19 08:10 Glucose 122 mg/dL (65-100) H 12/21/19 08:10 POC Glucose 164 (70-105) H 12/24/19 07:21 Calcium 9.0 mg/dL (8.4-10.2) 12/21/19 08:10 Total Bilirubin 0.40 mg/dL (0.1-1.2) 12/21/19 08:10 AST 19 units/L (5-40) 12/21/19 08:10 ALT 17 units/L (7-56) 12/21/19 08:10 Alkaline Phosphatase 94 units/L (35-129) 12/21/19 08:10 Total Protein 7.1 g/dL (6.3-8.2) 12/21/19 08:10 Albumin 3.9 g/dL (3.9-5) 12/21/19 08:10 Albumin/Globulin Ratio 1.2 % 12/21/19 08:10 Triglycerides 78 mg/dL (2-149) 12/21/19 08:10 Cholesterol 199 mg/dL (50-199) 12/21/19 08:10 LDL Cholesterol Direct 119 mg/dL (50-130) 12/21/19 08:10 HDL Cholesterol 69 mg/dL (40-59) H 12/21/19 08:10 Cholesterol/HDL Ratio 2.88 % 12/21/19 08:10 Urine Color Yellow (Yellow) 12/20/19 Unknown Urine Turbidity Clear (Clear) 12/20/19 Unknown Urine pH 6.0 (5.0-7.0) 12/20/19 Unknown Ur Specific [place] 1.020 (1.003-1.030) 12/20/19 Unknown Urine Protein 30 mg/dl mg/dL (Negative) 12/20/19 Unknown Urine Glucose (UA) Neg mg/dL (Negative) 12/20/19 Unknown Urine Ketones Neg mg/dL (Negative) 12/20/19 Unknown Urine Blood Neg (Negative) 12/20/19 Unknown Urine Nitrite Neg (Negative) 12/20/19 Unknown Ur Reducing Substances Not Reportable 12/20/19 Unknown Urine Bilirubin Neg (Negative) 12/20/19 Unknown Urine Ictotest Not Reportable 12/20/19 Unknown Urine Urobilinogen < 2.0 mg/dL (<2.0) 12/20/19 Unknown Ur Leukocyte Esterase Sm (Negative) 12/20/19 Unknown Urine WBC (Auto) 5.0 /HPF (0.0-6.0) 12/20/19 Unknown Urine RBC (Auto) 1.0 /HPF (0.0-6.0) 12/20/19 Unknown U Epithel Cells (Auto) 5.0 /HPF (0-13.0) 12/20/19 Unknown Urine Mucus Few /HPF 12/20/19 Unknown Last Vital Signs Temp 98.7 F 12/24/19 22:00 Pulse 80 12/24/19 22:00 Resp 18 12/24/19 22:00 BP 130/67 12/24/19 22:00 Pulse Ox 99 12/24/19 22:00
[2019-12-25] MEDS: DONEPEZIL 10 MG TAB PO SCH (09:28)
[2019-12-25] MEDS: DOCUSATE SODIUM 100 MG CAP PO SCH (09:28)
[2019-12-25] MEDS: OMEGA-3 FATTY ACIDS/FISH OIL 1 GRAM CAP PO SCH (09:28)
[2019-12-25] MEDS: risperiDONE 1 MG TAB PO SCH (09:28)
[2019-12-25] MEDS: MEMANTINE 5 MG TAB PO SCH (09:28)
[2019-12-25] MEDS: SERTRALINE 50 MG TAB PO SCH (12:16)
--- NOTE | 2019-12-26 07:26 | Progress Note ---
Subjective Date of service: 12/26/19 Principal diagnosis: Dementia w/Behavioral Disturbance Subjective Comment: Psych nurse: Patient spent her day in and out of activity room and her room, pt is alert and oriented to person, pleasantly confused, and forgetful, she was medication compliant, has good appetite, no agitation, no distress noted, will continue to monitor. Psych Progress Ms Cohen seen this AM in activity room, enjoying breakfast, patient reports feeling great, says staff has been pleasant and the food she is eating not only looks good but tastes very good too. Patient denies depressed or suicidal thoughts and laughed off my question. Reason for continued inpatient psychiatric hospitalization: SI now resolved, bright affect, will continue to monitor for stability. REVIEW OF SYSTEMS Constitutional: Negative for weight loss ENT: Negative for stridor Respiratory: Negative for cough or hemoptysis All other systems reviewed and are negative MENTAL STATUS EXAMINATION General Appearance and Behavior: Age appropriate, good hygiene, wearing appropriate clothes, good eye contact, cooperative polite with questioning. Cooperation: Participating/engaged Psychomotor Behavior: unremarkable and within normal limits Mood: feel great Affect and affective range: congruent with mood Thought Process: Fluent/Logical Thought Content: WIthin reality Speech: Normal volume, Regular rate and rhythm Intellectual Functioning: Average Suicidal Ideation: denies Homicidal Ideation: Denies HI Impulse Control: unimpaired Insight and Judgment: Limited insight and judgment Memory: Impaired Attention: normal Orientation: Alert, oriented Diagnoses: Assessment and Plan - Psychiatric problem (1) Dementia with Behv disturbance Current Visit: Yes Status: Acute Treatment Plan continue risperidone and Zoloft Patient will be admitted for inpatient psychiatric evaluation, medication adjustment and close monitoring The patient's behavior, mood, sleep and appetite will be closely monitored. Patient will be enrolled in individual and group therapeutic sessions and encouraged to attend. Patient will be provided with a safe and structured environment. Patient's physical health needs will be addressed by the Hospitalist. Hospitalist Consulted Labs including CBC, CMP, Lipid profile and Hemoglobin A1C ordered Social Assessment will be completed and the Kitchen Steward will work with patient and family to ensure a suitable and safe disposition Medication adjustment will be made as clinically indicated Usual Wellness Christianity/Preservation: - Start Trazodone 50 mg po QHS & 50 mg po QHS PRN between 10 PM & 2 AM for insomnia - Start Melatonin 5 mg po QHS to promote circadian rhythm - Start [place]-3 for brain health, reduce impulsivity, and as adjunctive treatment for mood disorder, continue upon discharge given overall benefits. - Start B1 prophylaxis with 200 mg po for 5 days The patient agreed on the treatment plan, understood the risk, benefit, alternative treatment, potential consequence of no treatment, and gave informed consent. Initial Certification This is an acknowledgement statement that LUISA HASKINS is a 57 year old F who requires inpatient psychiatric admission for treatment which could reasonably be expected to improve the patient's condition for Estimated period of time patient will need to remain in the hospital: [2] Medications and Allergies Allergies Allergy/AdvReac Type Severity Reaction Status Date / Time No Known Allergies Allergy Verified 12/20/19 22:51 Home Medications Medication Instructions Recorded Confirmed Last Taken Type Docusate Sodium [Colace] 100 mg PO BID 12/20/19 12/20/19 Unknown History Memantine 5 mg PO BID 12/20/19 12/20/19 Unknown History Tylenol 650 mg PO Q4HR PRN 12/20/19 12/20/19 Unknown History amLODIPine 2.5 mg PO HS 12/20/19 12/20/19 Unknown History donepeziL [Aricept] 10 mg PO QDAY 12/20/19 12/20/19 Unknown History Active Meds: Active Medications Acetaminophen (Tylenol) 650 mg PO Q4H PRN PRN Reason: Pain, Moderate (4-6) Amlodipine Besylate (Amlodipine) 2.5 mg PO QHS [facility] Last Admin: 12/24/19 21:23 Dose: 2.5 mg Documented by: Docusate Sodium (Colace) 100 mg PO BID [facility] Last Admin: 12/25/19 09:28 Dose: 100 mg Documented by: Donepezil HCl (Aricept) 10 mg PO QDAY [facility] Last Admin: 12/25/19 09:28 Dose: 10 mg Documented by: Fish Oil (Fish Oil) 2,000 mg PO BID [facility] Last Admin: 12/25/19 09:28 Dose: 2,000 mg Documented by: Melatonin (Melatonin) 5 mg PO QHS PRN PRN Reason: Sleep Memantine (Memantine) 5 mg PO BID [facility] Last Admin: 12/25/19 09:28 Dose: 5 mg Documented by: Risperidone (Risperdal) 1 mg PO BID [facility] Last Admin: 12/25/19 09:28 Dose: 1 mg Documented by: Sertraline HCl (Zoloft) 25 mg PO QDAY [facility] Last Admin: 12/25/19 12:16 Dose: 25 mg Documented by: Trazodone HCl (Desyrel) 50 mg PO QHS [facility] Last Admin: 12/24/19 21:26 Dose: 50 mg Documented by: Results - Results Labs/Vitals: Laboratory Last Values WBC 5.9 K/mm3 (4.5-11.0) 12/22/19 09:03 RBC 5.09 M/mm3 (3.65-5.03) H 12/22/19 09:03 Hgb 14.9 gm/dl (10.1-14.3) H 12/22/19 09:03 Hct 45.6 % (30.3-42.9) H 12/22/19 09:03 MCV 90 fl (79-97) 12/22/19 09:03 MCH 29 pg (28-32) 12/22/19 09:03 MCHC 33 % (30-34) 12/22/19 09:03 RDW 13.7 % (13.2-15.2) 12/22/19 09:03 Plt Count 139 K/mm3 (140-440) L 12/22/19 09:03 Lymph % (Auto) Blackjack Supervisor 12/22/19 09:03 Love % (Auto) Blackjack Supervisor 12/22/19 09:03 Eos % (Auto) Blackjack Supervisor 12/22/19 09:03 Baso % (Auto) Blackjack Supervisor 12/22/19 09:03 Lymph # Blackjack Supervisor 12/22/19 09:03 Love # Blackjack Supervisor 12/22/19 09:03 Eos # Blackjack Supervisor 12/22/19 09:03 Baso # Blackjack Supervisor 12/22/19 09:03 Seg Neutrophils % Blackjack Supervisor 12/22/19 09:03 Seg Neutrophils # Blackjack Supervisor 12/22/19 09:03 Sodium 141 mmol/L (137-145) 12/21/19 08:10 Potassium 4.5 mmol/L (3.6-5.0) 12/21/19 08:10 Chloride 105.2 mmol/L (98-107) 12/21/19 08:10 Carbon Dioxide 22 mmol/L (22-30) 12/21/19 08:10 Anion Gap 18 mmol/L 12/21/19 08:10 BUN 22 mg/dL (7-17) H 12/21/19 08:10 Creatinine 1.0 mg/dL (0.6-1.2) 12/21/19 08:10 Estimated GFR 53 ml/min 12/21/19 08:10 BUN/Creatinine Ratio 22 % 12/21/19 08:10 Glucose 122 mg/dL (65-100) H 12/21/19 08:10 POC Glucose 164 (70-105) H 12/24/19 07:21 Calcium 9.0 mg/dL (8.4-10.2) 12/21/19 08:10 Total Bilirubin 0.40 mg/dL (0.1-1.2) 12/21/19 08:10 AST 19 units/L (5-40) 12/21/19 08:10 ALT 17 units/L (7-56) 12/21/19 08:10 Alkaline Phosphatase 94 units/L (35-129) 12/21/19 08:10 Total Protein 7.1 g/dL (6.3-8.2) 12/21/19 08:10 Albumin 3.9 g/dL (3.9-5) 12/21/19 08:10 Albumin/Globulin Ratio 1.2 % 12/21/19 08:10 Triglycerides 78 mg/dL (2-149) 12/21/19 08:10 Cholesterol 199 mg/dL (50-199) 12/21/19 08:10 LDL Cholesterol Direct 119 mg/dL (50-130) 12/21/19 08:10 HDL Cholesterol 69 mg/dL (40-59) H 12/21/19 08:10 Cholesterol/HDL Ratio 2.88 % 12/21/19 08:10 Urine Color Yellow (Yellow) 12/20/19 Unknown Urine Turbidity Clear (Clear) 12/20/19 Unknown Urine pH 6.0 (5.0-7.0) 12/20/19 Unknown Ur Specific [place] 1.020 (1.003-1.030) 12/20/19 Unknown Urine Protein 30 mg/dl mg/dL (Negative) 12/20/19 Unknown Urine Glucose (UA) Neg mg/dL (Negative) 12/20/19 Unknown Urine Ketones Neg mg/dL (Negative) 12/20/19 Unknown Urine Blood Neg (Negative) 12/20/19 Unknown Urine Nitrite Neg (Negative) 12/20/19 Unknown Ur Reducing Substances Not Reportable 12/20/19 Unknown Urine Bilirubin Neg (Negative) 12/20/19 Unknown Urine Ictotest Not Reportable 12/20/19 Unknown Urine Urobilinogen < 2.0 mg/dL (<2.0) 12/20/19 Unknown Ur Leukocyte Esterase Sm (Negative) 12/20/19 Unknown Urine WBC (Auto) 5.0 /HPF (0.0-6.0) 12/20/19 Unknown Urine RBC (Auto) 1.0 /HPF (0.0-6.0) 12/20/19 Unknown U Epithel Cells (Auto) 5.0 /HPF (0-13.0) 12/20/19 Unknown Urine Mucus Few /HPF 12/20/19 Unknown Last Vital Signs Temp 98.5 F 12/25/19 18:08 Pulse 87 12/25/19 18:08 Resp 18 12/25/19 18:08 BP 146/72 12/25/19 18:08 Pulse Ox 97 12/25/19 18:08
[2019-12-26] MEDS: SERTRALINE 50 MG TAB PO SCH (10:13)
[2019-12-26] MEDS: OMEGA-3 FATTY ACIDS/FISH OIL 1 GRAM CAP PO SCH ×3 (10:13→22:15)
[2019-12-26] MEDS: risperiDONE 1 MG TAB PO SCH ×3 (10:14→22:14)
[2019-12-26] MEDS: DOCUSATE SODIUM 100 MG CAP PO SCH ×3 (10:14→22:16)
[2019-12-26] MEDS: MEMANTINE 5 MG TAB PO SCH ×3 (10:14→22:16)
[2019-12-26] MEDS: DONEPEZIL 10 MG TAB PO SCH (10:14)
[2019-12-26] MEDS: traZODone 50 MG TAB PO SCH (22:14)
[2019-12-26] MEDS: amLODIPine 5 MG TAB PO SCH (22:17)
--- NOTE | 2019-12-27 07:26 | Progress Note ---
Subjective Date of service: 12/27/19 Principal diagnosis: Dementia w/Behavioral Disturbance Subjective Comment: Psych nurse: Pt given bath overnight due to foul body odor noted. Pt had a restful night. No acute distress observed or reported. Remains in bed resting at this time. Will continue to monitor. Pt received relaxing in bed. A&OX1. Denies pain, SI, or HI. No acute distress observed and reported. Will continue to monitor. Psych Progress Patient seen this AM in [facility] chair, say shes waiting for breakfast, otherwise no complaints. Reports sleeping all night, no night disturbances and medication complaint. Reason for continued inpatient psychiatric hospitalization: Plan for safety discharge with family tomorrow. REVIEW OF SYSTEMS Constitutional: Negative for weight loss ENT: Negative for stridor Respiratory: Negative for cough or hemoptysis All other systems reviewed and are negative MENTAL STATUS EXAMINATION General Appearance and Behavior: Age appropriate, good hygiene, wearing appropriate clothes, good eye contact, cooperative polite with questioning. Cooperation: Participating/engaged Psychomotor Behavior: unremarkable and within normal limits Mood: feel great Affect and affective range: congruent with mood Thought Process: Fluent/Logical Thought Content: Within reality Speech: Normal volume, Regular rate and rhythm Intellectual Functioning: Average Suicidal Ideation: denies Homicidal Ideation: Denies HI Impulse Control: unimpaired Insight and Judgment: Limited insight and judgment Memory: Impaired Attention: normal Orientation: Alert, oriented Diagnoses: Assessment and Plan - Psychiatric problem (1) Dementia with Behv disturbance Current Visit: Yes Status: Acute Treatment Plan continue risperidone and Zoloft Patient will be admitted for inpatient psychiatric evaluation, medication adjustment and close monitoring The patient's behavior, mood, sleep and appetite will be closely monitored. Patient will be enrolled in individual and group therapeutic sessions and encouraged to attend. Patient will be provided with a safe and structured environment. Patient's physical health needs will be addressed by the Hospitalist. Hospitalist Consulted Labs including CBC, CMP, Lipid profile and Hemoglobin A1C ordered Social Assessment will be completed and the [employer] will work with patient and family to ensure a suitable and safe disposition Medication adjustment will be made as clinically indicated Usual Wellness Bahai/Preservation: - Start Trazodone 50 mg po QHS & 50 mg po QHS PRN between 10 PM & 2 AM for insomnia - Start Melatonin 5 mg po QHS to promote circadian rhythm - Start [place]-3 for brain health, reduce impulsivity, and as adjunctive treatment for mood disorder, continue upon discharge given overall benefits. - Start B1 prophylaxis with 200 mg po for 5 days The patient agreed on the treatment plan, understood the risk, benefit, alternative treatment, potential consequence of no treatment, and gave informed consent. Initial Certification This is an acknowledgement statement that LUISA HASKINS is a 57 year old F who requires inpatient psychiatric admission for treatment which could reasonably be expected to improve the patient's condition for Estimated period of time patient will need to remain in the hospital: [1] Medications and Allergies Allergies Allergy/AdvReac Type Severity Reaction Status Date / Time No Known Allergies Allergy Verified 12/20/19 22:51 Home Medications Medication Instructions Recorded Confirmed Last Taken Type Docusate Sodium [Colace] 100 mg PO BID 12/20/19 12/20/19 Unknown History Memantine 5 mg PO BID 12/20/19 12/20/19 Unknown History Tylenol 650 mg PO Q4HR PRN 12/20/19 12/20/19 Unknown History amLODIPine 2.5 mg PO HS 12/20/19 12/20/19 Unknown History donepeziL [Aricept] 10 mg PO QDAY 12/20/19 12/20/19 Unknown History Active Meds: Active Medications Acetaminophen (Tylenol) 650 mg PO Q4H PRN PRN Reason: Pain, Moderate (4-6) Amlodipine Besylate (Amlodipine) 2.5 mg PO QHS [facility] Last Admin: 12/26/19 22:17 Dose: Not Given Documented by: Docusate Sodium (Colace) 100 mg PO BID [facility] Last Admin: 12/26/19 22:16 Dose: 100 mg Documented by: Donepezil HCl (Aricept) 10 mg PO QDAY [facility] Last Admin: 12/26/19 10:14 Dose: 10 mg Documented by: Fish Oil (Fish Oil) 2,000 mg PO BID [facility] Last Admin: 12/26/19 22:15 Dose: 2,000 mg Documented by: Melatonin (Melatonin) 5 mg PO QHS PRN PRN Reason: Sleep Memantine (Memantine) 5 mg PO BID [facility] Last Admin: 12/26/19 22:16 Dose: 5 mg Documented by: Risperidone (Risperdal) 1 mg PO BID [facility] Last Admin: 12/26/19 22:14 Dose: 1 mg Documented by: Sertraline HCl (Zoloft) 25 mg PO QDAY [facility] Last Admin: 12/26/19 10:13 Dose: 25 mg Documented by: Trazodone HCl (Desyrel) 50 mg PO QHS [facility] Last Admin: 12/26/19 22:14 Dose: 50 mg Documented by: Results - Results Labs/Vitals: Laboratory Last Values WBC 5.9 K/mm3 (4.5-11.0) 12/22/19 09:03 RBC 5.09 M/mm3 (3.65-5.03) H 12/22/19 09:03 Hgb 14.9 gm/dl (10.1-14.3) H 12/22/19 09:03 Hct 45.6 % (30.3-42.9) H 12/22/19 09:03 MCV 90 fl (79-97) 12/22/19 09:03 MCH 29 pg (28-32) 12/22/19 09:03 MCHC 33 % (30-34) 12/22/19 09:03 RDW 13.7 % (13.2-15.2) 12/22/19 09:03 Plt Count 139 K/mm3 (140-440) L 12/22/19 09:03 Lymph % (Auto) Senior Telecommunications Technician 12/22/19 09:03 [place] % (Auto) Senior Telecommunications Technician 12/22/19 09:03 Eos % (Auto) Senior Telecommunications Technician 12/22/19 09:03 Baso % (Auto) Senior Telecommunications Technician 12/22/19 09:03 Lymph # Senior Telecommunications Technician 12/22/19 09:03 [place] # Senior Telecommunications Technician 12/22/19 09:03 Eos # Senior Telecommunications Technician 12/22/19 09:03 Baso # Senior Telecommunications Technician 12/22/19 09:03 Seg Neutrophils % Senior Telecommunications Technician 12/22/19 09:03 Seg Neutrophils # Senior Telecommunications Technician 12/22/19 09:03 Sodium 141 mmol/L (137-145) 12/21/19 08:10 Potassium 4.5 mmol/L (3.6-5.0) 12/21/19 08:10 Chloride 105.2 mmol/L (98-107) 12/21/19 08:10 Carbon Dioxide 22 mmol/L (22-30) 12/21/19 08:10 Anion Gap 18 mmol/L 12/21/19 08:10 BUN 22 mg/dL (7-17) H 12/21/19 08:10 Creatinine 1.0 mg/dL (0.6-1.2) 12/21/19 08:10 Estimated GFR 53 ml/min 12/21/19 08:10 BUN/Creatinine Ratio 22 % 12/21/19 08:10 Glucose 122 mg/dL (65-100) H 12/21/19 08:10 POC Glucose 164 (70-105) H 12/24/19 07:21 Calcium 9.0 mg/dL (8.4-10.2) 12/21/19 08:10 Total Bilirubin 0.40 mg/dL (0.1-1.2) 12/21/19 08:10 AST 19 units/L (5-40) 12/21/19 08:10 ALT 17 units/L (7-56) 12/21/19 08:10 Alkaline Phosphatase 94 units/L (35-129) 12/21/19 08:10 Total Protein 7.1 g/dL (6.3-8.2) 12/21/19 08:10 Albumin 3.9 g/dL (3.9-5) 12/21/19 08:10 Albumin/Globulin Ratio 1.2 % 12/21/19 08:10 Triglycerides 78 mg/dL (2-149) 12/21/19 08:10 Cholesterol 199 mg/dL (50-199) 12/21/19 08:10 LDL Cholesterol Direct 119 mg/dL (50-130) 12/21/19 08:10 HDL Cholesterol 69 mg/dL (40-59) H 12/21/19 08:10 Cholesterol/HDL Ratio 2.88 % 12/21/19 08:10 Urine Color Yellow (Yellow) 12/20/19 Unknown Urine Turbidity Clear (Clear) 12/20/19 Unknown Urine pH 6.0 (5.0-7.0) 12/20/19 Unknown Ur Specific [place] 1.020 (1.003-1.030) 12/20/19 Unknown Urine Protein 30 mg/dl mg/dL (Negative) 12/20/19 Unknown Urine Glucose (UA) Neg mg/dL (Negative) 12/20/19 Unknown Urine Ketones Neg mg/dL (Negative) 12/20/19 Unknown Urine Blood Neg (Negative) 12/20/19 Unknown Urine Nitrite Neg (Negative) 12/20/19 Unknown Ur Reducing Substances Not Reportable 12/20/19 Unknown Urine Bilirubin Neg (Negative) 12/20/19 Unknown Urine Ictotest Not Reportable 12/20/19 Unknown Urine Urobilinogen < 2.0 mg/dL (<2.0) 12/20/19 Unknown Ur Leukocyte Esterase Sm (Negative) 12/20/19 Unknown Urine WBC (Auto) 5.0 /HPF (0.0-6.0) 12/20/19 Unknown Urine RBC (Auto) 1.0 /HPF (0.0-6.0) 12/20/19 Unknown U Epithel Cells (Auto) 5.0 /HPF (0-13.0) 12/20/19 Unknown Urine Mucus Few /HPF 12/20/19 Unknown Last Vital Signs Temp 99.3 F 12/26/19 22:00 Pulse 74 12/26/19 22:17 Resp 18 12/26/19 22:00 BP 122/52 12/26/19 22:17 Pulse Ox 100 12/26/19 22:00
[2019-12-27] MEDS: OMEGA-3 FATTY ACIDS/FISH OIL 1 GRAM CAP PO SCH ×2 (10:40→21:10)
[2019-12-27] MEDS: MEMANTINE 5 MG TAB PO SCH ×2 (10:40→21:11)
[2019-12-27] MEDS: risperiDONE 1 MG TAB PO SCH ×2 (10:41→21:11)
[2019-12-27] MEDS: DONEPEZIL 10 MG TAB PO SCH (10:41)
[2019-12-27] MEDS: SERTRALINE 50 MG TAB PO SCH (10:41)
[2019-12-27] MEDS: DOCUSATE SODIUM 100 MG CAP PO SCH ×2 (10:41→21:10)
--- NOTE | 2019-12-27 10:57 | Consultation ---
History of Present Illness - Reason for Consult Consult date: 12/21/19 Medical management Requesting physician: RAJEEV CHANCE - History of Present Illness 84 YO Female [facility] resident with HTN, HCV, Vascular Dementia, Cerebral Atherosclerosis admitted to [facility] for psychiatric stabilization. Patient seen and evaluated in the recreation room. Patient denies complaints. Patient denies pain. Patient is minimally cooperative with exam and interview. No reported nursing events. Past History Past Medical History: hypertension, other (See HPI) Past Surgical History: No surgical history, Other (Reviewed) Social history: single. denies: smoking, alcohol abuse, prescription drug abuse Family history: hypertension Medications and Allergies Allergies Allergy/AdvReac Type Severity Reaction Status Date / Time No Known Allergies Allergy Verified 12/20/19 22:51 Home Medications Medication Instructions Recorded Confirmed Last Taken Type Docusate Sodium [Colace] 100 mg PO BID 12/20/19 12/20/19 Unknown History Memantine 5 mg PO BID 12/20/19 12/20/19 Unknown History Tylenol 650 mg PO Q4HR PRN 12/20/19 12/20/19 Unknown History amLODIPine 2.5 mg PO HS 12/20/19 12/20/19 Unknown History donepeziL [Aricept] 10 mg PO QDAY 12/20/19 12/20/19 Unknown History Active Meds: Active Medications Acetaminophen (Tylenol) 650 mg PO Q4H PRN PRN Reason: Pain, Moderate (4-6) Amlodipine Besylate (Amlodipine) 2.5 mg PO QHS [facility] Last Admin: 12/26/19 22:17 Dose: Not Given Documented by: Docusate Sodium (Colace) 100 mg PO BID [facility] Last Admin: 12/27/19 10:41 Dose: 100 mg Documented by: Donepezil HCl (Aricept) 10 mg PO QDAY [facility] Last Admin: 12/27/19 10:41 Dose: 10 mg Documented by: Fish Oil (Fish Oil) 2,000 mg PO BID [facility] Last Admin: 12/27/19 10:40 Dose: 2,000 mg Documented by: Melatonin (Melatonin) 5 mg PO QHS PRN PRN Reason: Sleep Memantine (Memantine) 5 mg PO BID [facility] Last Admin: 12/27/19 10:40 Dose: 5 mg Documented by: Risperidone (Risperdal) 1 mg PO BID [facility] Last Admin: 12/27/19 10:41 Dose: 1 mg Documented by: Sertraline HCl (Zoloft) 25 mg PO QDAY [facility] Last Admin: 12/27/19 10:41 Dose: 25 mg Documented by: Trazodone HCl (Desyrel) 50 mg PO QHS [facility] Last Admin: 12/26/19 22:14 Dose: 50 mg Documented by: Review of Systems ROS unobtainable: due to mental status Exam - Constitutional Vitals: Temp Pulse Resp BP Pulse Ox 98.4 F 61 19 124/54 98 12/27/19 09:24 12/27/19 09:24 12/27/19 09:24 12/27/19 09:24 12/27/19 09:24 General appearance: Present: no acute distress - EENT Eyes: Present: PERRL ENT: hearing intact, clear oral mucosa - Neck Neck: Present: supple, normal ROM - Respiratory Respiratory effort: normal Respiratory: bilateral: CTA - Cardiovascular Heart Sounds: Present: S1 & S2. Absent: rub, click - Extremities Extremities: pulses symmetrical, No edema Peripheral Pulses: within normal limits - Abdominal General gastrointestinal: Present: soft, non-tender, non-distended, normal bowel sounds Female genitourinary: Present: normal - Integumentary Integumentary: Present: clear, warm, dry - Musculoskeletal Musculoskeletal: generalized weakness - Psychiatric Psychiatric: intact judgment & insight, cooperative - Neurologic Neurologic: CNII-XII intact, moves all extremities Results - Labs CBC & Chem 7: 12/22/19 09:03 12/21/19 08:10 Assessment and Plan - Patient Problems (1) Vascular dementia Current Visit: Yes Status: Acute Qualifiers: Dementia behavioral disturbance: with behavioral disturbance Qualified Code(s): F01.51 - Vascular dementia with behavioral disturbance Plan to address problem: Supportive care, increased verbal prompting, increased redirection with activities of daily living. Benzodiazepine therapy as needed as clinically indicated. (2) Cerebral atherosclerosis Current Visit: Yes Status: Acute Plan to address problem: Supportive care, continue medical management. (3) Hypertension Current Visit: Yes Status: Acute Qualifiers: Hypertension type: essential hypertension Qualified Code(s): I10 - Essential (primary) hypertension Plan to address problem: Monitor blood pressure every shift, continue medical management.
--- NOTE | 2019-12-27 11:07 | Progress Note ---
Assessment and Plan - Patient Problems (1) Cerebral atherosclerosis Current Visit: Yes Status: Acute Plan to address problem: Supportive care, continue medical management. (2) Hypertension Current Visit: Yes Status: Acute Qualifiers: Hypertension type: essential hypertension Qualified Code(s): I10 - Essential (primary) hypertension Plan to address problem: Monitor blood pressure every shift, continue medical management. (3) Vascular dementia Current Visit: Yes Status: Acute Qualifiers: Dementia behavioral disturbance: with behavioral disturbance Qualified Code(s): F01.51 - Vascular dementia with behavioral disturbance Plan to address problem: Supportive care, increased verbal prompting, increased redirection with activities of daily living. Benzodiazepine therapy as needed as clinically indicated. History Interval history: 84 YO Female Long [facility] Facility resident with HTN, HCV, Vascular Dementia, Cerebral Atherosclerosis. Patient seen and evaluated in her room. Patient denies complaints. Patient denies pain. Patient is cooperative with exam and interview. No reported nursing events. Pt denies pain. Hospitalist Physical - Constitutional Vitals: Temp Pulse Resp BP Pulse Ox 98.4 F 61 19 124/54 98 12/27/19 09:24 12/27/19 09:24 12/27/19 09:24 12/27/19 09:24 12/27/19 09:24 General appearance: Present: no acute distress - EENT Eyes: Present: PERRL ENT: hearing intact - Neck Neck: Present: supple - Respiratory Respiratory: bilateral: CTA - Cardiovascular Rhythm: regular Heart Sounds: Present: S1 & S2 - Extremities Extremities: no ischemia Peripheral Pulses: within normal limits - Abdominal General gastrointestinal: soft, non-tender, non-distended - Integumentary Integumentary: Present: clear, dry - Psychiatric Psychiatric: cooperative - Neurologic Neurologic: CNII-XII intact Results - Labs CBC & Chem 7: 12/22/19 09:03 12/21/19 08:10 Labs: Laboratory Last Values WBC 5.9 K/mm3 (4.5-11.0) 12/22/19 09:03 RBC 5.09 M/mm3 (3.65-5.03) H 12/22/19 09:03 Hgb 14.9 gm/dl (10.1-14.3) H 12/22/19 09:03 Hct 45.6 % (30.3-42.9) H 12/22/19 09:03 MCV 90 fl (79-97) 12/22/19 09:03 MCH 29 pg (28-32) 12/22/19 09:03 MCHC 33 % (30-34) 12/22/19 09:03 RDW 13.7 % (13.2-15.2) 12/22/19 09:03 Plt Count 139 K/mm3 (140-440) L 12/22/19 09:03 Lymph % (Auto) Non Food Receiving Clerk 12/22/19 09:03 [place] % (Auto) Non Food Receiving Clerk 12/22/19 09:03 Eos % (Auto) Non Food Receiving Clerk 12/22/19 09:03 Baso % (Auto) Non Food Receiving Clerk 12/22/19 09:03 Lymph # Non Food Receiving Clerk 12/22/19 09:03 [place] # Non Food Receiving Clerk 12/22/19 09:03 Eos # Non Food Receiving Clerk 12/22/19 09:03 Baso # Non Food Receiving Clerk 12/22/19 09:03 Seg Neutrophils % Non Food Receiving Clerk 12/22/19 09:03 Seg Neutrophils # Non Food Receiving Clerk 12/22/19 09:03 Sodium 141 mmol/L (137-145) 12/21/19 08:10 Potassium 4.5 mmol/L (3.6-5.0) 12/21/19 08:10 Chloride 105.2 mmol/L (98-107) 12/21/19 08:10 Carbon Dioxide 22 mmol/L (22-30) 12/21/19 08:10 Anion Gap 18 mmol/L 12/21/19 08:10 BUN 22 mg/dL (7-17) H 12/21/19 08:10 Creatinine 1.0 mg/dL (0.6-1.2) 12/21/19 08:10 Estimated GFR 53 ml/min 12/21/19 08:10 BUN/Creatinine Ratio 22 % 12/21/19 08:10 Glucose 122 mg/dL (65-100) H 12/21/19 08:10 POC Glucose 164 (70-105) H 12/24/19 07:21 Calcium 9.0 mg/dL (8.4-10.2) 12/21/19 08:10 Total Bilirubin 0.40 mg/dL (0.1-1.2) 12/21/19 08:10 AST 19 units/L (5-40) 12/21/19 08:10 ALT 17 units/L (7-56) 12/21/19 08:10 Alkaline Phosphatase 94 units/L (35-129) 12/21/19 08:10 Total Protein 7.1 g/dL (6.3-8.2) 12/21/19 08:10 Albumin 3.9 g/dL (3.9-5) 12/21/19 08:10 Albumin/Globulin Ratio 1.2 % 12/21/19 08:10 Triglycerides 78 mg/dL (2-149) 12/21/19 08:10 Cholesterol 199 mg/dL (50-199) 12/21/19 08:10 LDL Cholesterol Direct 119 mg/dL (50-130) 12/21/19 08:10 HDL Cholesterol 69 mg/dL (40-59) H 12/21/19 08:10 Cholesterol/HDL Ratio 2.88 % 12/21/19 08:10 Urine Color Yellow (Yellow) 12/20/19 Unknown Urine Turbidity Clear (Clear) 12/20/19 Unknown Urine pH 6.0 (5.0-7.0) 12/20/19 Unknown Ur Specific [place] 1.020 (1.003-1.030) 12/20/19 Unknown Urine Protein 30 mg/dl mg/dL (Negative) 12/20/19 Unknown Urine Glucose (UA) Neg mg/dL (Negative) 12/20/19 Unknown Urine Ketones Neg mg/dL (Negative) 12/20/19 Unknown Urine Blood Neg (Negative) 12/20/19 Unknown Urine Nitrite Neg (Negative) 12/20/19 Unknown Ur Reducing Substances Not Reportable 12/20/19 Unknown Urine Bilirubin Neg (Negative) 12/20/19 Unknown Urine Ictotest Not Reportable 12/20/19 Unknown Urine Urobilinogen < 2.0 mg/dL (<2.0) 12/20/19 Unknown Ur Leukocyte Esterase Sm (Negative) 12/20/19 Unknown Urine WBC (Auto) 5.0 /HPF (0.0-6.0) 12/20/19 Unknown Urine RBC (Auto) 1.0 /HPF (0.0-6.0) 12/20/19 Unknown U Epithel Cells (Auto) 5.0 /HPF (0-13.0) 12/20/19 Unknown Urine Mucus Few /HPF 12/20/19 Unknown [place]/IV: Voiding Method Toilet Active Medications - Current Medications Current Medications: Generic Name Dose Route Start Last Admin Trade Name Freq PRN Reason Stop Dose Admin Acetaminophen 650 mg 12/21/19 10:00 Tylenol PO Q4H PRN Pain, Moderate (4-6) Amlodipine Besylate 2.5 mg 12/21/19 22:00 12/26/19 22:17 Amlodipine PO Not Given QHS SHANNAN Docusate Sodium 100 mg 12/21/19 10:00 12/27/19 10:41 Colace PO 100 mg BID SHANNAN Administration Donepezil HCl 10 mg 12/21/19 10:00 12/27/19 10:41 Aricept PO 10 mg QDAY SHANNAN Administration Fish Oil 2,000 mg 12/21/19 10:00 12/27/19 10:40 Fish Oil PO 2,000 mg BID SHANNAN Administration Melatonin 5 mg 12/20/19 17:49 Melatonin PO QHS PRN Sleep Memantine 5 mg 12/21/19 10:00 12/27/19 10:40 Memantine PO 5 mg BID SHANNAN Administration Risperidone 1 mg 12/24/19 10:00 12/27/19 10:41 Risperdal PO 1 mg BID SHANNAN Administration Sertraline HCl 25 mg 12/25/19 12:00 12/27/19 10:41 Zoloft PO 25 mg QDAY SHANNAN Administration Trazodone HCl 50 mg 12/20/19 22:00 12/26/19 22:14 Desyrel PO 50 mg QHS SHANNAN Administration
--- NOTE | 2019-12-27 11:09 | Progress Note ---
Assessment and Plan - Patient Problems (1) Cerebral atherosclerosis Current Visit: Yes Status: Acute Plan to address problem: Supportive care, continue medical management. (2) Hypertension Current Visit: Yes Status: Acute Qualifiers: Hypertension type: essential hypertension Qualified Code(s): I10 - Essential (primary) hypertension Plan to address problem: Monitor blood pressure every shift, continue medical management. (3) Vascular dementia Current Visit: Yes Status: Acute Qualifiers: Dementia behavioral disturbance: with behavioral disturbance Qualified Code(s): F01.51 - Vascular dementia with behavioral disturbance Plan to address problem: Supportive care, increased verbal prompting, increased redirection with activities of daily living. Benzodiazepine therapy as needed as clinically indicated. History Interval history: 84 YO Female Nursing Home Facility resident with HTN, HCV, Vascular Dementia, Cerebral Atherosclerosis. Patient seen and evaluated in her room. Patient denies complaints. Patient denies pain. Patient is cooperative with exam and interview. No reported nursing events. Pt denies pain. Hospitalist Physical - Constitutional Vitals: Temp Pulse Resp BP Pulse Ox 98.4 F 61 19 124/54 98 12/27/19 09:24 12/27/19 09:24 12/27/19 09:24 12/27/19 09:24 12/27/19 09:24 General appearance: Present: no acute distress - EENT Eyes: Present: PERRL ENT: hearing intact - Neck Neck: Present: supple - Respiratory Respiratory effort: normal Respiratory: bilateral: CTA - Cardiovascular Rhythm: regular Heart Sounds: Present: S1 & S2 - Extremities Extremities: no ischemia Peripheral Pulses: within normal limits - Abdominal General gastrointestinal: soft, non-tender, non-distended - Integumentary Integumentary: Present: clear, dry - Psychiatric Psychiatric: cooperative - Neurologic Neurologic: CNII-XII intact Results - Labs CBC & Chem 7: 12/22/19 09:03 12/21/19 08:10 Labs: Laboratory Last Values WBC 5.9 K/mm3 (4.5-11.0) 12/22/19 09:03 RBC 5.09 M/mm3 (3.65-5.03) H 12/22/19 09:03 Hgb 14.9 gm/dl (10.1-14.3) H 12/22/19 09:03 Hct 45.6 % (30.3-42.9) H 12/22/19 09:03 MCV 90 fl (79-97) 12/22/19 09:03 MCH 29 pg (28-32) 12/22/19 09:03 MCHC 33 % (30-34) 12/22/19 09:03 RDW 13.7 % (13.2-15.2) 12/22/19 09:03 Plt Count 139 K/mm3 (140-440) L 12/22/19 09:03 Lymph % (Auto) [place] 12/22/19 09:03 [place] % (Auto) [place] 12/22/19 09:03 Eos % (Auto) [place] 12/22/19 09:03 Baso % (Auto) [place] 12/22/19 09:03 Lymph # [place] 12/22/19 09:03 [place] # [place] 12/22/19 09:03 Eos # [place] 12/22/19 09:03 Baso # [place] 12/22/19 09:03 Seg Neutrophils % [place] 12/22/19 09:03 Seg Neutrophils # [place] 12/22/19 09:03 Sodium 141 mmol/L (137-145) 12/21/19 08:10 Potassium 4.5 mmol/L (3.6-5.0) 12/21/19 08:10 Chloride 105.2 mmol/L (98-107) 12/21/19 08:10 Carbon Dioxide 22 mmol/L (22-30) 12/21/19 08:10 Anion Gap 18 mmol/L 12/21/19 08:10 BUN 22 mg/dL (7-17) H 12/21/19 08:10 Creatinine 1.0 mg/dL (0.6-1.2) 12/21/19 08:10 Estimated GFR 53 ml/min 12/21/19 08:10 BUN/Creatinine Ratio 22 % 12/21/19 08:10 Glucose 122 mg/dL (65-100) H 12/21/19 08:10 POC Glucose 164 (70-105) H 12/24/19 07:21 Calcium 9.0 mg/dL (8.4-10.2) 12/21/19 08:10 Total Bilirubin 0.40 mg/dL (0.1-1.2) 12/21/19 08:10 AST 19 units/L (5-40) 12/21/19 08:10 ALT 17 units/L (7-56) 12/21/19 08:10 Alkaline Phosphatase 94 units/L (35-129) 12/21/19 08:10 Total Protein 7.1 g/dL (6.3-8.2) 12/21/19 08:10 Albumin 3.9 g/dL (3.9-5) 12/21/19 08:10 Albumin/Globulin Ratio 1.2 % 12/21/19 08:10 Triglycerides 78 mg/dL (2-149) 12/21/19 08:10 Cholesterol 199 mg/dL (50-199) 12/21/19 08:10 LDL Cholesterol Direct 119 mg/dL (50-130) 12/21/19 08:10 HDL Cholesterol 69 mg/dL (40-59) H 12/21/19 08:10 Cholesterol/HDL Ratio 2.88 % 12/21/19 08:10 Urine Color Yellow (Yellow) 12/20/19 Unknown Urine Turbidity Clear (Clear) 12/20/19 Unknown Urine pH 6.0 (5.0-7.0) 12/20/19 Unknown Ur Specific [place] 1.020 (1.003-1.030) 12/20/19 Unknown Urine Protein 30 mg/dl mg/dL (Negative) 12/20/19 Unknown Urine Glucose (UA) Neg mg/dL (Negative) 12/20/19 Unknown Urine Ketones Neg mg/dL (Negative) 12/20/19 Unknown Urine Blood Neg (Negative) 12/20/19 Unknown Urine Nitrite Neg (Negative) 12/20/19 Unknown Ur Reducing Substances Not Reportable 12/20/19 Unknown Urine Bilirubin Neg (Negative) 12/20/19 Unknown Urine Ictotest Not Reportable 12/20/19 Unknown Urine Urobilinogen < 2.0 mg/dL (<2.0) 12/20/19 Unknown Ur Leukocyte Esterase Sm (Negative) 12/20/19 Unknown Urine WBC (Auto) 5.0 /HPF (0.0-6.0) 12/20/19 Unknown Urine RBC (Auto) 1.0 /HPF (0.0-6.0) 12/20/19 Unknown U Epithel Cells (Auto) 5.0 /HPF (0-13.0) 12/20/19 Unknown Urine Mucus Few /HPF 12/20/19 Unknown [place]/IV: Voiding Method Toilet Active Medications - Current Medications Current Medications: Generic Name Dose Route Start Last Admin Trade Name Freq PRN Reason Stop Dose Admin Acetaminophen 650 mg 12/21/19 10:00 Tylenol PO Q4H PRN Pain, Moderate (4-6) Amlodipine Besylate 2.5 mg 12/21/19 22:00 12/26/19 22:17 Amlodipine PO Not Given QHS SHANNAN Docusate Sodium 100 mg 12/21/19 10:00 12/27/19 10:41 Colace PO 100 mg BID SHANNAN Administration Donepezil HCl 10 mg 12/21/19 10:00 12/27/19 10:41 Aricept PO 10 mg QDAY SHANNAN Administration Fish Oil 2,000 mg 12/21/19 10:00 12/27/19 10:40 Fish Oil PO 2,000 mg BID SHANNAN Administration Melatonin 5 mg 12/20/19 17:49 Melatonin PO QHS PRN Sleep Memantine 5 mg 12/21/19 10:00 12/27/19 10:40 Memantine PO 5 mg BID SHANNAN Administration Risperidone 1 mg 12/24/19 10:00 12/27/19 10:41 Risperdal PO 1 mg BID SHANNAN Administration Sertraline HCl 25 mg 12/25/19 12:00 12/27/19 10:41 Zoloft PO 25 mg QDAY SHANNAN Administration Trazodone HCl 50 mg 12/20/19 22:00 12/26/19 22:14 Desyrel PO 50 mg QHS SHANNAN Administration
--- NOTE | 2019-12-27 11:10 | Progress Note ---
Assessment and Plan - Patient Problems (1) Cerebral atherosclerosis Current Visit: Yes Status: Acute Plan to address problem: Supportive care, continue medical management. (2) Hypertension Current Visit: Yes Status: Acute Qualifiers: Hypertension type: essential hypertension Qualified Code(s): I10 - Essential (primary) hypertension Plan to address problem: Monitor blood pressure every shift, continue medical management. (3) Vascular dementia Current Visit: Yes Status: Acute Qualifiers: Dementia behavioral disturbance: with behavioral disturbance Qualified Code(s): F01.51 - Vascular dementia with behavioral disturbance Plan to address problem: Supportive care, increased verbal prompting, increased redirection with activities of daily living. Benzodiazepine therapy as needed as clinically indicated. History Interval history: 84 YO Female [facility] resident with HTN, HCV, Vascular Dementia, Cerebral Atherosclerosis. Patient seen and evaluated in the recreation room today. Patient denies complaints. No reported nursing events. Pt denies pain. Hospitalist Physical - Constitutional Vitals: Temp Pulse Resp BP Pulse Ox 98.4 F 61 19 124/54 98 12/27/19 09:24 12/27/19 09:24 12/27/19 09:24 12/27/19 09:24 12/27/19 09:24 General appearance: Present: no acute distress - EENT Eyes: Present: PERRL ENT: hearing intact - Neck Neck: Present: supple - Respiratory Respiratory effort: normal Respiratory: bilateral: CTA - Cardiovascular Rhythm: regular Heart Sounds: Present: S1 & S2 - Extremities Extremities: no ischemia Peripheral Pulses: within normal limits - Abdominal General gastrointestinal: soft, non-tender, non-distended - Psychiatric Psychiatric: cooperative - Neurologic Neurologic: CNII-XII intact Results - Labs CBC & Chem 7: 12/22/19 09:03 12/21/19 08:10 Labs: Laboratory Last Values WBC 5.9 K/mm3 (4.5-11.0) 12/22/19 09:03 RBC 5.09 M/mm3 (3.65-5.03) H 12/22/19 09:03 Hgb 14.9 gm/dl (10.1-14.3) H 12/22/19 09:03 Hct 45.6 % (30.3-42.9) H 12/22/19 09:03 MCV 90 fl (79-97) 12/22/19 09:03 MCH 29 pg (28-32) 12/22/19 09:03 MCHC 33 % (30-34) 12/22/19 09:03 RDW 13.7 % (13.2-15.2) 12/22/19 09:03 Plt Count 139 K/mm3 (140-440) L 12/22/19 09:03 Lymph % (Auto) Director Of [employer] 12/22/19 09:03 [place] % (Auto) Director Of [employer] Work 12/22/19 09:03 Eos % (Auto) Director Of [employer] 12/22/19 09:03 Baso % (Auto) Director Of [employer] 12/22/19 09:03 Lymph # Director Of [employer] 12/22/19 09:03 [place] # Director Of [employer] Work 12/22/19 09:03 Eos # Director Of [employer] 12/22/19 09:03 Baso # Director Of [employer] 12/22/19 09:03 Seg Neutrophils % Director Of [employer] 12/22/19 09:03 Seg Neutrophils # Director Of [employer] 12/22/19 09:03 Sodium 141 mmol/L (137-145) 12/21/19 08:10 Potassium 4.5 mmol/L (3.6-5.0) 12/21/19 08:10 Chloride 105.2 mmol/L (98-107) 12/21/19 08:10 Carbon Dioxide 22 mmol/L (22-30) 12/21/19 08:10 Anion Gap 18 mmol/L 12/21/19 08:10 BUN 22 mg/dL (7-17) H 12/21/19 08:10 Creatinine 1.0 mg/dL (0.6-1.2) 12/21/19 08:10 Estimated GFR 53 ml/min 12/21/19 08:10 BUN/Creatinine Ratio 22 % 12/21/19 08:10 Glucose 122 mg/dL (65-100) H 12/21/19 08:10 POC Glucose 164 (70-105) H 12/24/19 07:21 Calcium 9.0 mg/dL (8.4-10.2) 12/21/19 08:10 Total Bilirubin 0.40 mg/dL (0.1-1.2) 12/21/19 08:10 AST 19 units/L (5-40) 12/21/19 08:10 ALT 17 units/L (7-56) 12/21/19 08:10 Alkaline Phosphatase 94 units/L (35-129) 12/21/19 08:10 Total Protein 7.1 g/dL (6.3-8.2) 12/21/19 08:10 Albumin 3.9 g/dL (3.9-5) 12/21/19 08:10 Albumin/Globulin Ratio 1.2 % 12/21/19 08:10 Triglycerides 78 mg/dL (2-149) 12/21/19 08:10 Cholesterol 199 mg/dL (50-199) 12/21/19 08:10 LDL Cholesterol Direct 119 mg/dL (50-130) 12/21/19 08:10 HDL Cholesterol 69 mg/dL (40-59) H 12/21/19 08:10 Cholesterol/HDL Ratio 2.88 % 12/21/19 08:10 Urine Color Yellow (Yellow) 12/20/19 Unknown Urine Turbidity Clear (Clear) 12/20/19 Unknown Urine pH 6.0 (5.0-7.0) 12/20/19 Unknown Ur Specific [place] 1.020 (1.003-1.030) 12/20/19 Unknown Urine Protein 30 mg/dl mg/dL (Negative) 12/20/19 Unknown Urine Glucose (UA) Neg mg/dL (Negative) 12/20/19 Unknown Urine Ketones Neg mg/dL (Negative) 12/20/19 Unknown Urine Blood Neg (Negative) 12/20/19 Unknown Urine Nitrite Neg (Negative) 12/20/19 Unknown Ur Reducing Substances Not Reportable 12/20/19 Unknown Urine Bilirubin Neg (Negative) 12/20/19 Unknown Urine Ictotest Not Reportable 12/20/19 Unknown Urine Urobilinogen < 2.0 mg/dL (<2.0) 12/20/19 Unknown Ur Leukocyte Esterase Sm (Negative) 12/20/19 Unknown Urine WBC (Auto) 5.0 /HPF (0.0-6.0) 12/20/19 Unknown Urine RBC (Auto) 1.0 /HPF (0.0-6.0) 12/20/19 Unknown U Epithel Cells (Auto) 5.0 /HPF (0-13.0) 12/20/19 Unknown Urine Mucus Few /HPF 12/20/19 Unknown [place]/IV: Voiding Method Toilet Active Medications - Current Medications Current Medications: Generic Name Dose Route Start Last Admin Trade Name Freq PRN Reason Stop Dose Admin Acetaminophen 650 mg 12/21/19 10:00 Tylenol PO Q4H PRN Pain, Moderate (4-6) Amlodipine Besylate 2.5 mg 12/21/19 22:00 12/26/19 22:17 Amlodipine PO Not Given QHS SHANNAN Docusate Sodium 100 mg 12/21/19 10:00 12/27/19 10:41 Colace PO 100 mg BID SHANNAN Administration Donepezil HCl 10 mg 12/21/19 10:00 12/27/19 10:41 Aricept PO 10 mg QDAY SHANNAN Administration Fish Oil 2,000 mg 12/21/19 10:00 12/27/19 10:40 Fish Oil PO 2,000 mg BID SHANNAN Administration Melatonin 5 mg 12/20/19 17:49 Melatonin PO QHS PRN Sleep Memantine 5 mg 12/21/19 10:00 12/27/19 10:40 Memantine PO 5 mg BID SHANNAN Administration Risperidone 1 mg 12/24/19 10:00 12/27/19 10:41 Risperdal PO 1 mg BID SHANNAN Administration Sertraline HCl 25 mg 12/25/19 12:00 12/27/19 10:41 Zoloft PO 25 mg QDAY SHANNAN Administration Trazodone HCl 50 mg 12/20/19 22:00 12/26/19 22:14 Desyrel PO 50 mg QHS SHANNAN Administration
--- NOTE | 2019-12-27 20:59 | Progress Note ---
Assessment and Plan - Patient Problems (1) Cerebral atherosclerosis Current Visit: Yes Status: Acute Plan to address problem: Supportive care, continue medical management. (2) Hypertension Current Visit: Yes Status: Acute Qualifiers: Hypertension type: essential hypertension Qualified Code(s): I10 - Essential (primary) hypertension Plan to address problem: Monitor blood pressure every shift, continue medical management. (3) Vascular dementia Current Visit: Yes Status: Acute Qualifiers: Dementia behavioral disturbance: with behavioral disturbance Qualified Code(s): F01.51 - Vascular dementia with behavioral disturbance Plan to address problem: Supportive care, increased verbal prompting, increased redirection with activities of daily living. Benzodiazepine therapy as needed as clinically indicated. History Interval history: 84 YO Female [facility] resident with HTN, HCV, Vascular Dementia, Cerebral Atherosclerosis. Patient seen and evaluated in the recreation room today. Patient denies complaints. No reported nursing events. Pt denies pain. Hospitalist Physical - Constitutional Vitals: Temp Pulse Resp BP Pulse Ox 98.4 F 61 19 124/54 98 12/27/19 09:24 12/27/19 09:24 12/27/19 09:24 12/27/19 09:24 12/27/19 09:24 General appearance: Present: no acute distress - EENT Eyes: Present: PERRL, EOM intact ENT: hearing intact - Neck Neck: Present: supple - Respiratory Respiratory: bilateral: CTA - Cardiovascular Rhythm: regular Heart Sounds: Present: S1 & S2 - Extremities Extremities: no ischemia Peripheral Pulses: within normal limits - Abdominal General gastrointestinal: soft, non-tender, non-distended - Integumentary Integumentary: Present: clear, dry - Psychiatric Psychiatric: cooperative - Neurologic Neurologic: CNII-XII intact Results - Labs CBC & Chem 7: 12/22/19 09:03 12/21/19 08:10 Labs: Laboratory Last Values WBC 5.9 K/mm3 (4.5-11.0) 12/22/19 09:03 RBC 5.09 M/mm3 (3.65-5.03) H 12/22/19 09:03 Hgb 14.9 gm/dl (10.1-14.3) H 12/22/19 09:03 Hct 45.6 % (30.3-42.9) H 12/22/19 09:03 MCV 90 fl (79-97) 12/22/19 09:03 MCH 29 pg (28-32) 12/22/19 09:03 MCHC 33 % (30-34) 12/22/19 09:03 RDW 13.7 % (13.2-15.2) 12/22/19 09:03 Plt Count 139 K/mm3 (140-440) L 12/22/19 09:03 Lymph % (Auto) Outpatient Scheduler 12/22/19 09:03 [place] % (Auto) Outpatient Scheduler 12/22/19 09:03 Eos % (Auto) Outpatient Scheduler 12/22/19 09:03 Baso % (Auto) Outpatient Scheduler 12/22/19 09:03 Lymph # Outpatient Scheduler 12/22/19 09:03 [place] # Outpatient Scheduler 12/22/19 09:03 Eos # Outpatient Scheduler 12/22/19 09:03 Baso # Outpatient Scheduler 12/22/19 09:03 Seg Neutrophils % Outpatient Scheduler 12/22/19 09:03 Seg Neutrophils # Outpatient Scheduler 12/22/19 09:03 Sodium 141 mmol/L (137-145) 12/21/19 08:10 Potassium 4.5 mmol/L (3.6-5.0) 12/21/19 08:10 Chloride 105.2 mmol/L (98-107) 12/21/19 08:10 Carbon Dioxide 22 mmol/L (22-30) 12/21/19 08:10 Anion Gap 18 mmol/L 12/21/19 08:10 BUN 22 mg/dL (7-17) H 12/21/19 08:10 Creatinine 1.0 mg/dL (0.6-1.2) 12/21/19 08:10 Estimated GFR 53 ml/min 12/21/19 08:10 BUN/Creatinine Ratio 22 % 12/21/19 08:10 Glucose 122 mg/dL (65-100) H 12/21/19 08:10 POC Glucose 164 (70-105) H 12/24/19 07:21 Calcium 9.0 mg/dL (8.4-10.2) 12/21/19 08:10 Total Bilirubin 0.40 mg/dL (0.1-1.2) 12/21/19 08:10 AST 19 units/L (5-40) 12/21/19 08:10 ALT 17 units/L (7-56) 12/21/19 08:10 Alkaline Phosphatase 94 units/L (35-129) 12/21/19 08:10 Total Protein 7.1 g/dL (6.3-8.2) 12/21/19 08:10 Albumin 3.9 g/dL (3.9-5) 12/21/19 08:10 Albumin/Globulin Ratio 1.2 % 12/21/19 08:10 Triglycerides 78 mg/dL (2-149) 12/21/19 08:10 Cholesterol 199 mg/dL (50-199) 12/21/19 08:10 LDL Cholesterol Direct 119 mg/dL (50-130) 12/21/19 08:10 HDL Cholesterol 69 mg/dL (40-59) H 12/21/19 08:10 Cholesterol/HDL Ratio 2.88 % 12/21/19 08:10 Urine Color Yellow (Yellow) 12/20/19 Unknown Urine Turbidity Clear (Clear) 12/20/19 Unknown Urine pH 6.0 (5.0-7.0) 12/20/19 Unknown Ur Specific [place] 1.020 (1.003-1.030) 12/20/19 Unknown Urine Protein 30 mg/dl mg/dL (Negative) 12/20/19 Unknown Urine Glucose (UA) Neg mg/dL (Negative) 12/20/19 Unknown Urine Ketones Neg mg/dL (Negative) 12/20/19 Unknown Urine Blood Neg (Negative) 12/20/19 Unknown Urine Nitrite Neg (Negative) 12/20/19 Unknown Ur Reducing Substances Not Reportable 12/20/19 Unknown Urine Bilirubin Neg (Negative) 12/20/19 Unknown Urine Ictotest Not Reportable 12/20/19 Unknown Urine Urobilinogen < 2.0 mg/dL (<2.0) 12/20/19 Unknown Ur Leukocyte Esterase Sm (Negative) 12/20/19 Unknown Urine WBC (Auto) 5.0 /HPF (0.0-6.0) 12/20/19 Unknown Urine RBC (Auto) 1.0 /HPF (0.0-6.0) 12/20/19 Unknown U Epithel Cells (Auto) 5.0 /HPF (0-13.0) 12/20/19 Unknown Urine Mucus Few /HPF 12/20/19 Unknown [place]/IV: Voiding Method Toilet Active Medications - Current Medications Current Medications: Generic Name Dose Route Start Last Admin Trade Name Freq PRN Reason Stop Dose Admin Acetaminophen 650 mg 12/21/19 10:00 Tylenol PO Q4H PRN Pain, Moderate (4-6) Amlodipine Besylate 2.5 mg 12/21/19 22:00 12/26/19 22:17 Amlodipine PO Not Given QHS SHANNAN Docusate Sodium 100 mg 12/21/19 10:00 12/27/19 10:41 Colace PO 100 mg BID SHANNAN Administration Donepezil HCl 10 mg 12/21/19 10:00 12/27/19 10:41 Aricept PO 10 mg QDAY SHANNAN Administration Fish Oil 2,000 mg 12/21/19 10:00 12/27/19 10:40 Fish Oil PO 2,000 mg BID SHANNAN Administration Melatonin 5 mg 12/20/19 17:49 Melatonin PO QHS PRN Sleep Memantine 5 mg 12/21/19 10:00 12/27/19 10:40 Memantine PO 5 mg BID SHANNAN Administration Risperidone 1 mg 12/24/19 10:00 12/27/19 10:41 Risperdal PO 1 mg BID SHANNAN Administration Sertraline HCl 25 mg 12/25/19 12:00 12/27/19 10:41 Zoloft PO 25 mg QDAY SHANNAN Administration Trazodone HCl 50 mg 12/20/19 22:00 12/26/19 22:14 Desyrel PO 50 mg QHS SHANNAN Administration Nutrition/Malnutrition Assess - Dietary Evaluation Nutrition/Malnutrition Findings: Nutrition Notes Start: 12/27/19 11:45 Freq: Status: Active Protocol: Document 12/27/19 11:45 CELSA (Rec: 12/27/19 11:46 CELSA [email or web address]) Nutrition Notes Need for Assessment generated from: LOS Initial or Follow up Brief Note Current Diet Regular Subjective/Other Information Pt screened for LOS. She has consumed 100% of meals since admission. Minimum of two criteria No Nutrition Intervention Revisit per MD consult or patient Sign Off request:
[2019-12-27] MEDS: traZODone 50 MG TAB PO SCH (21:10)
[2019-12-27] MEDS: amLODIPine 5 MG TAB PO SCH (21:11)
--- NOTE | 2019-12-28 07:29 | Progress Note ---
Subjective Date of service: 12/28/19 Principal diagnosis: Dementia w/Behavioral Disturbance Subjective Comment: Psych nurse: pt spent her evening in activity room watching television, alert and oriented to self, calm and cooperative, able to make needs known, good appetite, medication compliant, forgetful, no behavioral issue, no distress noted, will continue to monitor for safety. Psych Progress Patient seen in the break room this morning, brighter affect, asked patient what she thinks of her daughter "Ksenia" pt smiled briefly says she feels stressed by family sometimes, especially her daughter and sometimes they just waiting for her to kick bucket and she laughed. She reports being in a good mood today, I then proceeded to call daughter to mediate conversation and she spoke with her daughter over the phone and conversation was reported to go well by daughter. Reason for continued inpatient psychiatric hospitalization: Plan for safety discharge with family tomorrow. REVIEW OF SYSTEMS Constitutional: Negative for weight loss ENT: Negative for stridor Respiratory: Negative for cough or hemoptysis All other systems reviewed and are negative MENTAL STATUS EXAMINATION General Appearance and Behavior: Age appropriate, good hygiene, wearing appropriate clothes, good eye contact, cooperative polite with questioning. Cooperation: Participating/engaged Psychomotor Behavior: unremarkable and within normal limits Mood: feel great Affect and affective range: congruent with mood Thought Process: Fluent/Logical Thought Content: Within reality Speech: Normal volume, Regular rate and rhythm Intellectual Functioning: Average Suicidal Ideation: denies Homicidal Ideation: Denies HI Impulse Control: unimpaired Insight and Judgment: Limited insight and judgment Memory: Impaired Attention: normal Orientation: Alert, oriented Diagnoses: Assessment and Plan - Psychiatric problem (1) Dementia with Behv disturbance Current Visit: Yes Status: Acute Treatment Plan continue risperidone and Zoloft Patient will be admitted for inpatient psychiatric evaluation, medication adjustment and close monitoring The patient's behavior, mood, sleep and appetite will be closely monitored. Patient will be enrolled in individual and group therapeutic sessions and encouraged to attend. Patient will be provided with a safe and structured environment. Patient's physical health needs will be addressed by the Hospitalist. Hospitalist Consulted Labs including CBC, CMP, Lipid profile and Hemoglobin A1C ordered Social Assessment will be completed and the Quality Systems Technician will work with patient and family to ensure a suitable and safe disposition Medication adjustment will be made as clinically indicated Usual Wellness Alevism/Preservation: - Start Trazodone 50 mg po QHS & 50 mg po QHS PRN between 10 PM & 2 AM for insomnia - Start Melatonin 5 mg po QHS to promote circadian rhythm - Start [place]-3 for brain health, reduce impulsivity, and as adjunctive treatment for mood disorder, continue upon discharge given overall benefits. - Start B1 prophylaxis with 200 mg po for 5 days The patient agreed on the treatment plan, understood the risk, benefit, alternative treatment, potential consequence of no treatment, and gave informed consent. Initial Certification This is an acknowledgement statement that LUISA HASKINS is a 57 year old F who requires inpatient psychiatric admission for treatment which could reasonably be expected to improve the patient's condition for Estimated period of time patient will need to remain in the hospital: [1] Medications and Allergies Allergies Allergy/AdvReac Type Severity Reaction Status Date / Time No Known Allergies Allergy Verified 12/20/19 22:51 Home Medications Medication Instructions Recorded Confirmed Last Taken Type Docusate Sodium [Colace] 100 mg PO BID 12/20/19 12/20/19 Unknown History Memantine 5 mg PO BID 12/20/19 12/20/19 Unknown History Tylenol 650 mg PO Q4HR PRN 12/20/19 12/20/19 Unknown History amLODIPine 2.5 mg PO HS 12/20/19 12/20/19 Unknown History donepeziL [Aricept] 10 mg PO QDAY 12/20/19 12/20/19 Unknown History Active Meds: Active Medications Acetaminophen (Tylenol) 650 mg PO Q4H PRN PRN Reason: Pain, Moderate (4-6) Amlodipine Besylate (Amlodipine) 2.5 mg PO QHS [facility] Last Admin: 12/27/19 21:11 Dose: 2.5 mg Documented by: Docusate Sodium (Colace) 100 mg PO BID [facility] Last Admin: 12/27/19 21:10 Dose: 100 mg Documented by: Donepezil HCl (Aricept) 10 mg PO QDAY [facility] Last Admin: 12/27/19 10:41 Dose: 10 mg Documented by: Fish Oil (Fish Oil) 2,000 mg PO BID [facility] Last Admin: 12/27/19 21:10 Dose: 2,000 mg Documented by: Melatonin (Melatonin) 5 mg PO QHS PRN PRN Reason: Sleep Memantine (Memantine) 5 mg PO BID [facility] Last Admin: 12/27/19 21:11 Dose: 5 mg Documented by: Risperidone (Risperdal) 1 mg PO BID [facility] Last Admin: 12/27/19 21:11 Dose: 1 mg Documented by: Sertraline HCl (Zoloft) 25 mg PO QDAY [facility] Last Admin: 12/27/19 10:41 Dose: 25 mg Documented by: Trazodone HCl (Desyrel) 50 mg PO QHS [facility] Last Admin: 12/27/19 21:10 Dose: 50 mg Documented by: Results - Results Labs/Vitals: Laboratory Last Values WBC 5.9 K/mm3 (4.5-11.0) 12/22/19 09:03 RBC 5.09 M/mm3 (3.65-5.03) H 12/22/19 09:03 Hgb 14.9 gm/dl (10.1-14.3) H 12/22/19 09:03 Hct 45.6 % (30.3-42.9) H 12/22/19 09:03 MCV 90 fl (79-97) 12/22/19 09:03 MCH 29 pg (28-32) 12/22/19 09:03 MCHC 33 % (30-34) 12/22/19 09:03 RDW 13.7 % (13.2-15.2) 12/22/19 09:03 Plt Count 139 K/mm3 (140-440) L 12/22/19 09:03 Lymph % (Auto) Furnace Installer 12/22/19 09:03 [place] % (Auto) Furnace Installer 12/22/19 09:03 Eos % (Auto) Furnace Installer 12/22/19 09:03 Baso % (Auto) Furnace Installer 12/22/19 09:03 Lymph # Furnace Installer 12/22/19 09:03 [place] # Furnace Installer 12/22/19 09:03 Eos # Furnace Installer 12/22/19 09:03 Baso # Furnace Installer 12/22/19 09:03 Seg Neutrophils % Furnace Installer 12/22/19 09:03 Seg Neutrophils # Furnace Installer 12/22/19 09:03 Sodium 141 mmol/L (137-145) 12/21/19 08:10 Potassium 4.5 mmol/L (3.6-5.0) 12/21/19 08:10 Chloride 105.2 mmol/L (98-107) 12/21/19 08:10 Carbon Dioxide 22 mmol/L (22-30) 12/21/19 08:10 Anion Gap 18 mmol/L 12/21/19 08:10 BUN 22 mg/dL (7-17) H 12/21/19 08:10 Creatinine 1.0 mg/dL (0.6-1.2) 12/21/19 08:10 Estimated GFR 53 ml/min 12/21/19 08:10 BUN/Creatinine Ratio 22 % 12/21/19 08:10 Glucose 122 mg/dL (65-100) H 12/21/19 08:10 POC Glucose 164 (70-105) H 12/24/19 07:21 Calcium 9.0 mg/dL (8.4-10.2) 12/21/19 08:10 Total Bilirubin 0.40 mg/dL (0.1-1.2) 12/21/19 08:10 AST 19 units/L (5-40) 12/21/19 08:10 ALT 17 units/L (7-56) 12/21/19 08:10 Alkaline Phosphatase 94 units/L (35-129) 12/21/19 08:10 Total Protein 7.1 g/dL (6.3-8.2) 12/21/19 08:10 Albumin 3.9 g/dL (3.9-5) 12/21/19 08:10 Albumin/Globulin Ratio 1.2 % 12/21/19 08:10 Triglycerides 78 mg/dL (2-149) 12/21/19 08:10 Cholesterol 199 mg/dL (50-199) 12/21/19 08:10 LDL Cholesterol Direct 119 mg/dL (50-130) 12/21/19 08:10 HDL Cholesterol 69 mg/dL (40-59) H 12/21/19 08:10 Cholesterol/HDL Ratio 2.88 % 12/21/19 08:10 Urine Color Yellow (Yellow) 12/20/19 Unknown Urine Turbidity Clear (Clear) 12/20/19 Unknown Urine pH 6.0 (5.0-7.0) 12/20/19 Unknown Ur Specific [place] 1.020 (1.003-1.030) 12/20/19 Unknown Urine Protein 30 mg/dl mg/dL (Negative) 12/20/19 Unknown Urine Glucose (UA) Neg mg/dL (Negative) 12/20/19 Unknown Urine Ketones Neg mg/dL (Negative) 12/20/19 Unknown Urine Blood Neg (Negative) 12/20/19 Unknown Urine Nitrite Neg (Negative) 12/20/19 Unknown Ur Reducing Substances Not Reportable 12/20/19 Unknown Urine Bilirubin Neg (Negative) 12/20/19 Unknown Urine Ictotest Not Reportable 12/20/19 Unknown Urine Urobilinogen < 2.0 mg/dL (<2.0) 12/20/19 Unknown Ur Leukocyte Esterase Sm (Negative) 12/20/19 Unknown Urine WBC (Auto) 5.0 /HPF (0.0-6.0) 12/20/19 Unknown Urine RBC (Auto) 1.0 /HPF (0.0-6.0) 12/20/19 Unknown U Epithel Cells (Auto) 5.0 /HPF (0-13.0) 12/20/19 Unknown Urine Mucus Few /HPF 12/20/19 Unknown Last Vital Signs Temp 98.6 F 12/27/19 20:15 Pulse 76 12/27/19 21:11 Resp 18 12/27/19 20:15 BP 139/73 12/27/19 21:11 Pulse Ox 98 12/27/19 20:15
[2019-12-28] MEDS: SERTRALINE 50 MG TAB PO SCH (09:32)
[2019-12-28] MEDS: OMEGA-3 FATTY ACIDS/FISH OIL 1 GRAM CAP PO SCH ×2 (09:32→21:22)
[2019-12-28] MEDS: DOCUSATE SODIUM 100 MG CAP PO SCH ×2 (09:32→21:24)
[2019-12-28] MEDS: DONEPEZIL 10 MG TAB PO SCH (09:32)
[2019-12-28] MEDS: MEMANTINE 5 MG TAB PO SCH ×2 (09:33→21:23)
[2019-12-28] MEDS: risperiDONE 1 MG TAB PO SCH ×2 (09:33→21:23)
[2019-12-28] MEDS: traZODone 50 MG TAB PO SCH ×2 (21:22→21:24)
[2019-12-28] MEDS: amLODIPine 5 MG TAB PO SCH ×2 (21:23→21:24)
--- NOTE | 2019-12-29 07:20 | Progress Note ---
Subjective Date of service: 12/29/19 Principal diagnosis: Dementia w/Behavioral Disturbance Subjective Comment: Psych nurse:patient was calm and cooperative, compliant with medication, she interact well with peers, no behaviour issues noted, forgetful at time, no distress noted, will continue to monitor. Psych Progress Patient seen this AM in Day room, reports feeling good, does not remember speaking with her daughter Reason for continued inpatient psychiatric hospitalization: Plan for safety discharge with family tomorrow. REVIEW OF SYSTEMS Constitutional: Negative for weight loss ENT: Negative for stridor Respiratory: Negative for cough or hemoptysis All other systems reviewed and are negative MENTAL STATUS EXAMINATION General Appearance and Behavior: Age appropriate, good hygiene, wearing appropriate clothes, good eye contact, cooperative polite with questioning. Cooperation: Participating/engaged Psychomotor Behavior: unremarkable and within normal limits Mood: feel great Affect and affective range: congruent with mood Thought Process: Fluent/Logical Thought Content: Within reality Speech: Normal volume, Regular rate and rhythm Intellectual Functioning: Average Suicidal Ideation: denies Homicidal Ideation: Denies HI Impulse Control: unimpaired Insight and Judgment: Limited insight and judgment Memory: Impaired Attention: normal Orientation: Alert, oriented Diagnoses: Assessment and Plan - Psychiatric problem (1) Dementia with Behv disturbance Current Visit: Yes Status: Acute Treatment Plan continue risperidone and Zoloft Patient will be admitted for inpatient psychiatric evaluation, medication adjustment and close monitoring The patient's behavior, mood, sleep and appetite will be closely monitored. Patient will be enrolled in individual and group therapeutic sessions and encouraged to attend. Patient will be provided with a safe and structured environment. Patient's physical health needs will be addressed by the Hospitalist. Hospitalist Consulted Labs including CBC, CMP, Lipid profile and Hemoglobin A1C ordered Social Assessment will be completed and the Extrusion Utility Worker will work with patient and family to ensure a suitable and safe disposition Medication adjustment will be made as clinically indicated Usual Wellness Muslim/Preservation: - Start Trazodone 50 mg po QHS & 50 mg po QHS PRN between 10 PM & 2 AM for insomnia - Start Melatonin 5 mg po QHS to promote circadian rhythm - Start [place]-3 for brain health, reduce impulsivity, and as adjunctive treatment for mood disorder, continue upon discharge given overall benefits. - Start B1 prophylaxis with 200 mg po for 5 days The patient agreed on the treatment plan, understood the risk, benefit, alternative treatment, potential consequence of no treatment, and gave informed consent. Initial Certification This is an acknowledgement statement that LUISA HASKINS is a 57 year old F who requires inpatient psychiatric admission for treatment which could reasonab ly be expected to improve the patient's condition for Estimated period of time patient will need to remain in the hospital: [1] Medications and Allergies Allergies Allergy/AdvReac Type Severity Reaction Status Date / Time No Known Allergies Allergy Verified 12/20/19 22:51 Home Medications Medication Instructions Recorded Confirmed Last Taken Type Docusate Sodium [Colace CAP] 100 mg PO BID 12/20/19 12/20/19 Unknown History Memantine 5 mg PO BID 12/20/19 12/20/19 Unknown History Tylenol 650 mg PO Q4HR PRN 12/20/19 12/20/19 Unknown History amLODIPine 2.5 mg PO HS 12/20/19 12/20/19 Unknown History donepeziL [Aricept] 10 mg PO QDAY 12/20/19 12/20/19 Unknown History Sertraline [Zoloft] 25 mg PO QDAY #30 tablet 12/28/19 Unknown Rx risperiDONE [RisperDAL] 1 mg PO BID #30 tablet 12/28/19 Unknown Rx traZODone [Desyrel] 50 mg PO QHS #30 tablet 12/28/19 Unknown Rx Active Meds: Active Medications Acetaminophen (Tylenol) 650 mg PO Q4H PRN PRN Reason: Pain, Moderate (4-6) Amlodipine Besylate (Amlodipine) 2.5 mg PO QHS [facility] Last Admin: 12/28/19 21:24 Dose: 2.5 mg Documented by: Docusate Sodium (Colace) 100 mg PO BID [facility] Last Admin: 12/28/19 21:24 Dose: 100 mg Documented by: Donepezil HCl (Aricept) 10 mg PO QDAY [facility] Last Admin: 12/28/19 09:32 Dose: 10 mg Documented by: Fish Oil (Fish Oil) 2,000 mg PO BID [facility] Last Admin: 12/28/19 21:22 Dose: 2,000 mg Documented by: Melatonin (Melatonin) 5 mg PO QHS PRN PRN Reason: Sleep Memantine (Memantine) 5 mg PO BID [facility] Last Admin: 12/28/19 21:23 Dose: 5 mg Documented by: Risperidone (Risperdal) 1 mg PO BID [facility] Last Admin: 12/28/19 21:23 Dose: 1 mg Documented by: Sertraline HCl (Zoloft) 25 mg PO QDAY [facility] Last Admin: 12/28/19 09:32 Dose: 25 mg Documented by: Trazodone HCl (Desyrel) 50 mg PO QHS [facility] Last Admin: 12/28/19 21:24 Dose: 50 mg Documented by: Results - Results Labs/Vitals: Laboratory Last Values WBC 5.9 K/mm3 (4.5-11.0) 12/22/19 09:03 RBC 5.09 M/mm3 (3.65-5.03) H 12/22/19 09:03 Hgb 14.9 gm/dl (10.1-14.3) H 12/22/19 09:03 Hct 45.6 % (30.3-42.9) H 12/22/19 09:03 MCV 90 fl (79-97) 12/22/19 09:03 MCH 29 pg (28-32) 12/22/19 09:03 MCHC 33 % (30-34) 12/22/19 09:03 RDW 13.7 % (13.2-15.2) 12/22/19 09:03 Plt Count 139 K/mm3 (140-440) L 12/22/19 09:03 Lymph % (Auto) Supplier Manager 12/22/19 09:03 [place] % (Auto) Supplier Manager 12/22/19 09:03 Eos % (Auto) Supplier Manager 12/22/19 09:03 Baso % (Auto) Supplier Manager 12/22/19 09:03 Lymph # Supplier Manager 12/22/19 09:03 [place] # Supplier Manager 12/22/19 09:03 Eos # Supplier Manager 12/22/19 09:03 Baso # Supplier Manager 12/22/19 09:03 Seg Neutrophils % Supplier Manager 12/22/19 09:03 Seg Neutrophils # Supplier Manager 12/22/19 09:03 Sodium 141 mmol/L (137-145) 12/21/19 08:10 Potassium 4.5 mmol/L (3.6-5.0) 12/21/19 08:10 Chloride 105.2 mmol/L (98-107) 12/21/19 08:10 Carbon Dioxide 22 mmol/L (22-30) 12/21/19 08:10 Anion Gap 18 mmol/L 12/21/19 08:10 BUN 22 mg/dL (7-17) H 12/21/19 08:10 Creatinine 1.0 mg/dL (0.6-1.2) 12/21/19 08:10 Estimated GFR 53 ml/min 12/21/19 08:10 BUN/Creatinine Ratio 22 % 12/21/19 08:10 Glucose 122 mg/dL (65-100) H 12/21/19 08:10 POC Glucose 164 (70-105) H 12/24/19 07:21 Calcium 9.0 mg/dL (8.4-10.2) 12/21/19 08:10 Total Bilirubin 0.40 mg/dL (0.1-1.2) 12/21/19 08:10 AST 19 units/L (5-40) 12/21/19 08:10 ALT 17 units/L (7-56) 12/21/19 08:10 Alkaline Phosphatase 94 units/L (35-129) 12/21/19 08:10 Total Protein 7.1 g/dL (6.3-8.2) 12/21/19 08:10 Albumin 3.9 g/dL (3.9-5) 12/21/19 08:10 Albumin/Globulin Ratio 1.2 % 12/21/19 08:10 Triglycerides 78 mg/dL (2-149) 12/21/19 08:10 Cholesterol 199 mg/dL (50-199) 12/21/19 08:10 LDL Cholesterol Direct 119 mg/dL (50-130) 12/21/19 08:10 HDL Cholesterol 69 mg/dL (40-59) H 12/21/19 08:10 Cholesterol/HDL Ratio 2.88 % 12/21/19 08:10 Urine Color Yellow (Yellow) 12/20/19 Unknown Urine Turbidity Clear (Clear) 12/20/19 Unknown Urine pH 6.0 (5.0-7.0) 12/20/19 Unknown Ur Specific [place] 1.020 (1.003-1.030) 12/20/19 Unknown Urine Protein 30 mg/dl mg/dL (Negative) 12/20/19 Unknown Urine Glucose (UA) Neg mg/dL (Negative) 12/20/19 Unknown Urine Ketones Neg mg/dL (Negative) 12/20/19 Unknown Urine Blood Neg (Negative) 12/20/19 Unknown Urine Nitrite Neg (Negative) 12/20/19 Unknown Ur Reducing Substances Not Reportable 12/20/19 Unknown Urine Bilirubin Neg (Negative) 12/20/19 Unknown Urine Ictotest Not Reportable 12/20/19 Unknown Urine Urobilinogen < 2.0 mg/dL (<2.0) 12/20/19 Unknown Ur Leukocyte Esterase Sm (Negative) 12/20/19 Unknown Urine WBC (Auto) 5.0 /HPF (0.0-6.0) 12/20/19 Unknown Urine RBC (Auto) 1.0 /HPF (0.0-6.0) 12/20/19 Unknown U Epithel Cells (Auto) 5.0 /HPF (0-13.0) 12/20/19 Unknown Urine Mucus Few /HPF 12/20/19 Unknown Last Vital Signs Temp 98.2 F 12/28/19 22:00 Pulse 71 12/28/19 22:00 Resp 18 12/28/19 22:00 BP 111/63 12/28/19 22:00 Pulse Ox 98 12/28/19 08:59
[2019-12-29] MEDS: DOCUSATE SODIUM 100 MG CAP PO SCH ×2 (10:18→21:21)
[2019-12-29] MEDS: DONEPEZIL 10 MG TAB PO SCH (10:18)
[2019-12-29] MEDS: MEMANTINE 5 MG TAB PO SCH ×2 (10:18→21:21)
[2019-12-29] MEDS: SERTRALINE 50 MG TAB PO SCH (10:18)
[2019-12-29] MEDS: risperiDONE 1 MG TAB PO SCH ×2 (10:19→21:21)
[2019-12-29] MEDS: OMEGA-3 FATTY ACIDS/FISH OIL 1 GRAM CAP PO SCH ×2 (10:19→21:21)
[2019-12-29] MEDS: amLODIPine 5 MG TAB PO SCH (21:19)
[2019-12-29] MEDS: traZODone 50 MG TAB PO SCH (21:21)
--- NOTE | 2019-12-30 07:37 | Progress Note ---
Subjective Date of service: 12/30/19 Principal diagnosis: Dementia w/Behavioral Disturbance Subjective Comment: Psych nurse:pt spent her evening in activity room watching television, alert and oriented to person, able to make needs known, calm and cooperative, forgetful but follows command, had one loose stool, colace not given as indicated in order to hold for loose stool, medication compliant, good appetite, no complaints voiced, no distress noted, will continue to monitor for safety. Psych Progress Patient was discharged, but due to refusal to get out of van, she was brought back to facility. Patient reports doing well, does not remember events from yesterday. Interacts okay and eats good Reason for continued inpatient psychiatric hospitalization: Plan for safety discharge. REVIEW OF SYSTEMS Constitutional: Negative for weight loss ENT: Negative for stridor Respiratory: Negative for cough or hemoptysis All other systems reviewed and are negative MENTAL STATUS EXAMINATION General Appearance and Behavior: Age appropriate, good hygiene, wearing appropriate clothes, good eye contact, cooperative polite with questioning. Cooperation: Participating/engaged Psychomotor Behavior: unremarkable and within normal limits Mood: feel great Affect and affective range: congruent with mood Thought Process: Fluent/Logical Thought Content: Within reality Speech: Normal volume, Regular rate and rhythm Intellectual Functioning: Average Suicidal Ideation: denies Homicidal Ideation: Denies HI Impulse Control: unimpaired Insight and Judgment: Limited insight and judgment Memory: Impaired Attention: normal Orientation: Alert, oriented Diagnoses: Assessment and Plan - Psychiatric problem (1) Dementia with Behv disturbance Current Visit: Yes Status: Acute Treatment Plan continue risperidone and Zoloft Patient will be admitted for inpatient psychiatric evaluation, medication adjustment and close monitoring The patient's behavior, mood, sleep and appetite will be closely monitored. Patient will be enrolled in individual and group therapeutic sessions and encouraged to attend. Patient will be provided with a safe and structured environment. Patient's physical health needs will be addressed by the Hospitalist. Hospitalist Consulted Labs including CBC, CMP, Lipid profile and Hemoglobin A1C ordered Social Assessment will be completed and the [employer] Electrical Engineer will work with patient and family to ensure a suitable and safe disposition Medication adjustment will be made as clinically indicated Usual Wellness Tenriism/Preservation: - Start Trazodone 50 mg po QHS & 50 mg po QHS PRN between 10 PM & 2 AM for insomnia - Start Melatonin 5 mg po QHS to promote circadian rhythm - Start [place]-3 for brain health, reduce impulsivity, and as adjunctive treatment for mood disorder, continue upon discharge given overall benefits. - Start B1 prophylaxis with 200 mg po for 5 days The patient agreed on the treatment plan, understood the risk, benefit, alternative treatment, potential consequence of no treatment, and gave informed consent. Initial Certification This is an acknowledgement statement that LUISA HASKINS is a 57 year old F who requires inpatient psychiatric admission for treatment which could reasonably be expected to improve the patient's condition for Estimated period of time patient will need to remain in the hospital: [1] Medications and Allergies Allergies Allergy/AdvReac Type Severity Reaction Status Date / Time No Known Allergies Allergy Verified 12/20/19 22:51 Home Medications Medication Instructions Recorded Confirmed Last Taken Type Docusate Sodium [Colace CAP] 100 mg PO BID 12/20/19 12/20/19 Unknown History Memantine 5 mg PO BID 12/20/19 12/20/19 Unknown History Tylenol 650 mg PO Q4HR PRN 12/20/19 12/20/19 Unknown History amLODIPine 2.5 mg PO HS 12/20/19 12/20/19 Unknown History donepeziL [Aricept] 10 mg PO QDAY 12/20/19 12/20/19 Unknown History Sertraline [Zoloft] 25 mg PO QDAY #30 tablet 12/28/19 Unknown Rx risperiDONE [RisperDAL] 1 mg PO BID #30 tablet 12/28/19 Unknown Rx traZODone [Desyrel] 50 mg PO QHS #30 tablet 12/28/19 Unknown Rx Active Meds: Active Medications Acetaminophen (Tylenol) 650 mg PO Q4H PRN PRN Reason: Pain, Moderate (4-6) Amlodipine Besylate (Amlodipine) 2.5 mg PO QHS [facility] Last Admin: 12/29/19 21:19 Dose: 2.5 mg Documented by: Docusate Sodium (Colace) 100 mg PO BID [facility] Last Admin: 12/29/19 21:21 Dose: Not Given Documented by: Donepezil HCl (Aricept) 10 mg PO QDAY [facility] Last Admin: 12/29/19 10:18 Dose: 10 mg Documented by: Fish Oil (Fish Oil) 2,000 mg PO BID [facility] Last Admin: 12/29/19 21:21 Dose: 2,000 mg Documented by: Melatonin (Melatonin) 5 mg PO QHS PRN PRN Reason: Sleep Memantine (Memantine) 5 mg PO BID [facility] Last Admin: 12/29/19 21:21 Dose: 5 mg Documented by: Risperidone (Risperdal) 1 mg PO BID [facility] Last Admin: 12/29/19 21:21 Dose: 1 mg Documented by: Sertraline HCl (Zoloft) 25 mg PO QDAY [facility] Last Admin: 12/29/19 10:18 Dose: 25 mg Documented by: Trazodone HCl (Desyrel) 50 mg PO QHS [facility] Last Admin: 12/29/19 21:21 Dose: 50 mg Documented by: Results - Results Labs/Vitals: Laboratory Last Values WBC 5.9 K/mm3 (4.5-11.0) 12/22/19 09:03 RBC 5.09 M/mm3 (3.65-5.03) H 12/22/19 09:03 Hgb 14.9 gm/dl (10.1-14.3) H 12/22/19 09:03 Hct 45.6 % (30.3-42.9) H 12/22/19 09:03 MCV 90 fl (79-97) 12/22/19 09:03 MCH 29 pg (28-32) 12/22/19 09:03 MCHC 33 % (30-34) 12/22/19 09:03 RDW 13.7 % (13.2-15.2) 12/22/19 09:03 Plt Count 139 K/mm3 (140-440) L 12/22/19 09:03 Lymph % (Auto) Glove Operator 12/22/19 09:03 Todd % (Auto) Glove Operator 12/22/19 09:03 Eos % (Auto) Glove Operator 12/22/19 09:03 Baso % (Auto) Glove Operator 12/22/19 09:03 Lymph # Glove Operator 12/22/19 09:03 Todd # Glove Operator 12/22/19 09:03 Eos # Glove Operator 12/22/19 09:03 Baso # Glove Operator 12/22/19 09:03 Seg Neutrophils % Glove Operator 12/22/19 09:03 Seg Neutrophils # Glove Operator 12/22/19 09:03 Sodium 141 mmol/L (137-145) 12/21/19 08:10 Potassium 4.5 mmol/L (3.6-5.0) 12/21/19 08:10 Chloride 105.2 mmol/L (98-107) 12/21/19 08:10 Carbon Dioxide 22 mmol/L (22-30) 12/21/19 08:10 Anion Gap 18 mmol/L 12/21/19 08:10 BUN 22 mg/dL (7-17) H 12/21/19 08:10 Creatinine 1.0 mg/dL (0.6-1.2) 12/21/19 08:10 Estimated GFR 53 ml/min 12/21/19 08:10 BUN/Creatinine Ratio 22 % 12/21/19 08:10 Glucose 122 mg/dL (65-100) H 12/21/19 08:10 POC Glucose 164 (70-105) H 12/24/19 07:21 Calcium 9.0 mg/dL (8.4-10.2) 12/21/19 08:10 Total Bilirubin 0.40 mg/dL (0.1-1.2) 12/21/19 08:10 AST 19 units/L (5-40) 12/21/19 08:10 ALT 17 units/L (7-56) 12/21/19 08:10 Alkaline Phosphatase 94 units/L (35-129) 12/21/19 08:10 Total Protein 7.1 g/dL (6.3-8.2) 12/21/19 08:10 Albumin 3.9 g/dL (3.9-5) 12/21/19 08:10 Albumin/Globulin Ratio 1.2 % 12/21/19 08:10 Triglycerides 78 mg/dL (2-149) 12/21/19 08:10 Cholesterol 199 mg/dL (50-199) 12/21/19 08:10 LDL Cholesterol Direct 119 mg/dL (50-130) 12/21/19 08:10 HDL Cholesterol 69 mg/dL (40-59) H 12/21/19 08:10 Cholesterol/HDL Ratio 2.88 % 12/21/19 08:10 Urine Color Yellow (Yellow) 12/20/19 Unknown Urine Turbidity Clear (Clear) 12/20/19 Unknown Urine pH 6.0 (5.0-7.0) 12/20/19 Unknown Ur Specific [place] 1.020 (1.003-1.030) 12/20/19 Unknown Urine Protein 30 mg/dl mg/dL (Negative) 12/20/19 Unknown Urine Glucose (UA) Neg mg/dL (Negative) 12/20/19 Unknown Urine Ketones Neg mg/dL (Negative) 12/20/19 Unknown Urine Blood Neg (Negative) 12/20/19 Unknown Urine Nitrite Neg (Negative) 12/20/19 Unknown Ur Reducing Substances Not Reportable 12/20/19 Unknown Urine Bilirubin Neg (Negative) 12/20/19 Unknown Urine Ictotest Not Reportable 12/20/19 Unknown Urine Urobilinogen < 2.0 mg/dL (<2.0) 12/20/19 Unknown Ur Leukocyte Esterase Sm (Negative) 12/20/19 Unknown Urine WBC (Auto) 5.0 /HPF (0.0-6.0) 12/20/19 Unknown Urine RBC (Auto) 1.0 /HPF (0.0-6.0) 12/20/19 Unknown U Epithel Cells (Auto) 5.0 /HPF (0-13.0) 12/20/19 Unknown Urine Mucus Few /HPF 12/20/19 Unknown Last Vital Signs Temp 97.7 F 12/29/19 22:00 Pulse 69 12/29/19 22:00 Resp 18 12/29/19 22:00 BP 180/92 12/29/19 22:00 Pulse Ox 99 12/29/19 22:00
[2019-12-30 07:40] VITALS: BP 152/72
[2019-12-30] MEDS: DOCUSATE SODIUM 100 MG CAP PO SCH (09:50)
[2019-12-30] MEDS: DONEPEZIL 10 MG TAB PO SCH (09:50)
[2019-12-30] MEDS: risperiDONE 1 MG TAB PO SCH (09:50)
[2019-12-30] MEDS: OMEGA-3 FATTY ACIDS/FISH OIL 1 GRAM CAP PO SCH (09:50)
[2019-12-30] MEDS: MEMANTINE 5 MG TAB PO SCH (09:50)
[2019-12-30] MEDS: SERTRALINE 50 MG TAB PO SCH (09:50)
[2019-12-30] MEDS ORDERED: LORazepam 1 MG TAB PO STA (11:56)
== END 2019-12-30 15:07 | DRG 884 ==
LOC: UNDOADMIN 15:47 → 3A 15:47 → 5A 22:31 → UNDODISIN 12-29 16:20
PROVIDERS: ADMIT Psychiatry & Neurology Psychiatry; ATTEND Psychiatry & Neurology Psychiatry
DX: F01.51 Vascular dementia, unspecified severity, with behavioral disturbance (principal); B19.20 Unspecified viral hepatitis C without hepatic coma; I10 Essential (primary) hypertension; I67.2 Cerebral atherosclerosis; Z79.899 Other long term (current) drug therapy
CPT/HCPCS: 80053; 80061; 81001; 82962; 85025; G0378